=== PATIENT | male | born 1965 | race African-American/Black ===

== ENCOUNTER 2018-02-05 11:53 | Inpatient (IN) | payer MEDICAID, OTHER ==
[~2018-02-05] VITALS: Ht 177.8 cm; Wt 107.5 kg
[~2018-02-05 11:53] MED LIST: LISI10TA5 PO
--- NOTE | 2018-02-05 11:55 | NUR ---
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 102. RR IS EVEN AND UNLABORED WITH NAD NOTED. SKIN IS WARM AND DRY. PLACED ON THE MONITOR AND HOSPITAL GOWN.
--- NOTE | 2018-02-05 11:58 | NUR ---
SEPARATING MACHINE OPERATOR CALLED FOR STAT LAB DRAW
--- NOTE | 2018-02-05 11:59 | NUR ---
MD PERALES AT BEDSIDE
[2018-02-05] MEDS ORDERED: IV NS 0.9% 1,000 ML BAG IV ONE (12:00)
[2018-02-05] MEDS ORDERED: IV NS 0.9% 1,000 ML IV ONE ×2 (12:00→13:30)
[2018-02-05] MEDS ORDERED: ACETAMINOPHEN 650 MG/20.3 ML UDC ONE (12:21)
[2018-02-05] MEDS ORDERED: ACETAMINOPHEN 650 MG/20.3 ML UDC PO ONE (12:30)
--- NOTE | 2018-02-05 12:45 | NUR ---
MD PERALES AT BEDSIDE
[2018-02-05] MEDS ORDERED: LORAZEPAM INJ 2 MG/ML VIAL ONE (12:49)
[2018-02-05 12:55] LABS: BASOPHILS # (AUTO) 0.3 /CMM (0.0-0.2); BASOPHILS % (AUTO) 1.8 % (0.0-2.0); EOSINOPHILS % (AUTO) 0.3 % (0.0-6.0); HEMATOCRIT 42 % (39-51); HEMOGLOBIN 14.3 g/dL (13.5-17.5); LYMPHOCYTES # (AUTO) 0.8 /CMM (0.8-4.8); LYMPHOCYTES % (AUTO) 5.3 % (20.0-44.0); MEAN CORPUSCULAR HEMOGLOBIN 29 PG (26.0-33.0); MEAN CORPUSCULAR HGB CONC 34 g/dl (31.0-36.0); MEAN CORPUSCULAR VOLUME 84 fL (80-96); MONOCYTES # (AUTO) 0.8 /CMM (0.1-1.30); MONOCYTES % (AUTO) 5.3 % (2.0-12.0); NEUTROPHILS # (AUTO) 14.1 /CMM (1.8-8.9); NEUTROPHILS % (AUTO) 87.3 % (43.0-81.0); PLATELET COUNT (AUTO) 328 /CMM (150-450); RDW COEFFICIENT OF VARIATION 13.2 (11.5-15.0); RED BLOOD CELL COUNT(AUTO) 5.02 MIL/uL (4.5-6.0)
[2018-02-05] MEDS ORDERED: CEFTRIAXONE 1GM BAG (ER ONLY) 1 GM/50 ML PIGGYBACK IV ONE (13:00)
[2018-02-05] MEDS ORDERED: LORAZEPAM INJ 2 MG/ML VIAL IV ONE (13:00)
[2018-02-05] MEDS ORDERED: ASPI-1169 PO (13:04)
[2018-02-05] MEDS ORDERED: OXYC30TA2 PO (13:04)
[2018-02-05] MEDS ORDERED: CEFTRIAXONE 1GM BAG (ER ONLY) 50 ML IV ONE (13:05)
[2018-02-05 13:15] LABS: CALCIUM, SERUM 8.4 mg/dL (8.5-10.1); CARBON DIOXIDE 34 mmol/L (21-32); CHLORIDE 101 mmol/L (98-107); CREATININE 1.3 mg/dL (0.6-1.3); GLUCOSE 161 mg/dL (74-106); POTASSIUM 3.6 mmol/L (3.5-5.1); SODIUM SERUM 137 mmol/L (136-145); UREA NITROGEN, BLOOD 10 mg/dL (7-18)
[2018-02-05 13:16] LABS: INR 0.97 (0.85-1.15)
[2018-02-05 13:17] LABS: APPEARANCE,URINE Clear (CLEAR); BILIRUBIN,URINE Negative (NEGATIVE); BLOOD, URINE Negative Ery/uL (NEGATIVE); COLOR,URINE Yellow (YELLOW); KETONES,URINE Negative (NEGATIVE); LEUKOCYTE ESTERASE ,URINE Negative (NEGATIVE); NITRITE, URINE Negative (NEGATIVE); PH,URINE 8.5 (5.0-8.0); PROTEIN,URINE Negative (NEGATIVE); UGLUCOSE Negative (NEGATIVE); UROBILINOGEN,URINE 0.2 EU/dL (0.2)
[2018-02-05 13:19] LABS: ALANINE AMINOTRANSFERASE 28 U/L (12-78); ALBUMIN 3.4 g/dL (3.4-5.0); ALKALINE PHOSPHATASE 92 U/L (46-116); ASPARTATE AMINOTRANSFERASE 21 U/L (15-37); BILIRUBIN,DIRECT 0.1 mg/dL (0.0-0.2); BILIRUBIN,TOTAL 0.3 mg/dL (0.2-1.0); TOTAL PROTEIN, SERUM 6.8 g/dL (6.4-8.2)
[2018-02-05 13:20] LABS: TROPONIN I 0.019 ng/mL (0.00-0.056)
--- NOTE | 2018-02-05 13:24 | NUR ---
CALLED NURSING SUP. FOR TELE BED
--- NOTE | 2018-02-05 13:26 | NUR ---
CALLED PHARMACY FOR KAMALA
[2018-02-05] MEDS ORDERED: AZITHROMYCIN 500 MG in IV D5W 250 ML IV ONE (13:30)
--- NOTE | 2018-02-05 13:41 | NUR ---
TELE 112-2 FOR SEPSIS, DAMIR ROCHA ADMITTING
[2018-02-05] MEDS ORDERED: IV NS 0.9% 500 ML IV ONE (14:00)
--- NOTE | 2018-02-05 14:00 | NUR ---
HARP REGULATOR INITIAL NOTES: RECEIVED PT FROM ER NURSE VIA CHELLE. PT A&O X4 WITH SOME LETHARGY NOTED. BUT EASY TO AROUSE. PT DENIES ANY PAIN OR DISCOMFORT AT THIS TIME. ON O2 VIA NC AT 2LPM ORDERED, O2 SATURATION 98%. VS STABLE. SKIN ASSESSMENT DONE, INTACT. DAMIR ROCHA FLATWORK IRONER AWARE OF PT'S ADMISSION. ORDERS INPUTTED IN COMPUTER. BED IN LOW LOCKED POSITION, CALL LIGHT WITHIN REACH. PLAN OF CARE DISCUSSED WITH PT. PT STATED UNDERSTANDING. WILL CONTINUE TO MONITOR.
[2018-02-05] MEDS ORDERED: ONDANSETRON HCL/PF 4 MG/2 ML VIAL IVP PRN (14:30)
[2018-02-05] MEDS ORDERED: Z GUARD REMEDY 2 OZ OINT TP PRN (14:30)
[2018-02-05] MEDS ORDERED: ACETAMINOPHEN 325 MG TABLET PO PRN (14:30)
[2018-02-05] MEDS ORDERED: MAGNESIUM HYDROXIDE 30 ML UDC PO PRN (14:30)
[2018-02-05] MEDS: IV NS 0.9% 1,000 ML IV PRN ×2 (15:18→23:59)
[2018-02-05] MEDS: ENOXAPARIN SODIUM 40 MG/0.4 ML DISP.SYRIN SQ SCH (15:43)
[2018-02-05 16:00] VITALS: BP 104/58
[2018-02-05 18:19] VITALS: BP 125/66
--- NOTE | 2018-02-05 18:45 | NUR ---
CREDIT PRODUCT ANALYST END NOTES: PT REMAINS IN BED, SLEEPING AT THIS TIME BUT EASY TO AROUSE. FAMILY AWARE OF PT'S LOCATION AND ADMISSION TO HOSPITAL. PT SPOKE WITH FAMILY WELL. NO C.O PAIN OR DISCOMFORT AT THIS TIME. IV FLUIDS RUNNING ORDERED. O2 VIA NC AT 2LPM, NO SOB OR RESPIRATORY DISTRESS NOTED. BED IN LOW LOCKED POSITION, CALL LIGHT WITHIN REACH. WILL ENDORSE TO PM SHIFT FOR CONTINUITY OF CARE.
[2018-02-05 20:00] VITALS: BP 103/67
--- NOTE | 2018-02-05 20:46 | NUR ---
RN NOTES REFLEX TROPONIN RESULTED. NOTED TO BE TRENDING UP FROM 0.019 TO 0.032. PATIENT IS ASYMPTOMATIC, NO COMPLAINTS OF PAIN AND DISCOMFORT, NO PALPITATIONS. VSS. PATIENT REMAINS LETHARGIC BUT ORIENTED. DR. CHAUDHARY MADE AWARE OF THE TROPONIN VALUE, NNO. MARII HATCH, AWARE.
[2018-02-06] VITALS (7 sets, daily range): BP systolic 109–142; BP diastolic 57–87
--- NOTE | 2018-02-06 01:00 | NUR ---
RN NOTES patient more alert and oriented, complaining of SOB and sharp, midsternal pain with breathing, non radiating. also noted patient with blood tinged sputum. VSS. Patient admitted for Sepsis, CAP. Updated patient with current condition and DX. per patient, he presented with PNA last 1992 with same symptomatology and stated that he was being medicated with Morphine for his pain. Patient medicated with [place] at 0000, with help for the patient, patient asleep, easily arousable, still with complaints of pain with breathing. Dr. Barker made aware of the patient's complaints, new order for Morphine IVP PRN obtained. noted and carried out. Patient at 0100 is observed to be sound asleep. kept comfortable. monitored closely.
[2018-02-06] MEDS: MORPHINE SULFATE INJ 2 MG/ML DISP.SYRIN IV PRN ×4 (03:44→21:04)
--- NOTE | 2018-02-06 06:47 | NUR ---
RN NOTES PATIENT SLEEPING COMFORTABLY. AROUSABLE WITH VERBAL AND TACTILE STIMULI, NO FURTHER COMPLAINTS OF PAIN AND DISCOMFORT. MORPHINE GIVEN AT 0400, EFFECTIVE FOR THE PATIENT. KEPT ON 2LPM OF O2 VIA NC. RESPIRATION EVEN AND UNLABORED WITH NO DISTRESS. IVF ORDERED. NEEDS ANTICIPATED AND MET. CALL LIGHT IN REACH. WILL ENDORSE ACCORDINGLY.
[2018-02-06 06:52] LABS: BASOPHILS % (AUTO) 0.2 % (0.0-2.0); EOSINOPHILS % (AUTO) 1.5 % (0.0-6.0); HEMATOCRIT 39 % (39-51); HEMOGLOBIN 13.4 g/dL (13.5-17.5); LYMPHOCYTES # (AUTO) 1.7 /CMM (0.8-4.8); LYMPHOCYTES % (AUTO) 11.8 % (20.0-44.0); MEAN CORPUSCULAR HEMOGLOBIN 29 PG (26.0-33.0); MEAN CORPUSCULAR HGB CONC 34 g/dl (31.0-36.0); MEAN CORPUSCULAR VOLUME 84 fL (80-96); MONOCYTES # (AUTO) 1.1 /CMM (0.1-1.30); MONOCYTES % (AUTO) 7.6 % (2.0-12.0); NEUTROPHILS # (AUTO) 11.5 /CMM (1.8-8.9); NEUTROPHILS % (AUTO) 78.9 % (43.0-81.0); PLATELET COUNT (AUTO) 293 /CMM (150-450); RDW COEFFICIENT OF VARIATION 13.4 (11.5-15.0); RED BLOOD CELL COUNT(AUTO) 4.64 MIL/uL (4.5-6.0); WHITE BLOOD COUNT (AUTO) 14.5 K/uL (4.3-11.0)
[2018-02-06 07:17] LABS: CALCIUM, SERUM 8.2 mg/dL (8.5-10.1); MAGNESIUM 1.9 mg/dL (1.8-2.4); PHOSPHORUS 2.3 mg/dL (2.5-4.9); POTASSIUM 3.6 mmol/L (3.5-5.1)
[2018-02-06 07:28] LABS: THYROID STIMULATING HORMONE 0.247 uIU/mL (0.358-3.74)
--- NOTE | 2018-02-06 07:45 | NUR ---
RN Note: Pt received A&Ox4, breathing even and unlabored, anxious, c/o chest pain exacerbated by coughing, 02/02. Pt requesting morphine for comfort. Educated on POC. Verbalized understanding. IVF infusing well into R AC. SR on monitor.
[2018-02-06] MEDS: ASPIRIN 81 MG TAB.CHEW PO SCH (08:08)
[2018-02-06] MEDS: LISINOPRIL (10MG) 10 MG TABLET PO SCH (08:08)
[2018-02-06] MEDS: ENOXAPARIN SODIUM 40 MG/0.4 ML DISP.SYRIN SQ SCH (08:09)
[2018-02-06] MEDS ORDERED: K PHOS NEUTRAL 250 MG TABLET PO ONE (11:00)
--- NOTE | 2018-02-06 12:00 | NUR ---
RN Note: Omar Lopez at bedside speaking with pt. Updated on pt status.
[2018-02-06] MEDS: HYDROCODONE/APAP 5/325MG 1 EACH TABLET PO PRN ×2 (13:05)
[2018-02-06] MEDS: CEFTRIAXONE 1 G in IV NS 0.9% 50 ML IV SCH (13:06)
--- NOTE | 2018-02-06 13:30 | NUR ---
RN Note: Pt ambulated with PT, tolerated well.
--- NOTE | 2018-02-06 13:44 | NUR ---
Patient is alert and pleasant,lives locally with family. He is ambulatory and independent with adl's. Has no DME or homehealth provided. Family involved and supportive. Family will provide ride when discharge. Addendum: 02/06/18 at 1344 by MARKOS TAN RN Amended: Links added.
[2018-02-06] MEDS: AZITHROMYCIN 500 MG in IV D5W 250 ML IV SCH (14:11)
[2018-02-06] MEDS: IV NS 0.9% 1,000 ML IV PRN (17:35)
--- NOTE | 2018-02-06 18:59 | NUR ---
RN Note: Pt resting in bed comfortably, no s/s pain or distress. Tolerated dinner well. IVF infusing. Care endorsed to PM RN for EDUARDO.
--- NOTE | 2018-02-06 19:30 | NUR ---
TELE/ RN NOTES: RECEIVED PT. IN BED W/ HOB ELEVATED. A/O X 4. ON TELE MONITOR SR @ 86. DENIES ANY C/O CHEST PAIN OR SOB AT PRESENT. CONTINENT OF B/B. USES URINAL OR BRP. HAS RAC G 20 PATENT AND INTACT W/ NO S/S OF INFECTION/INFILTRATION. W/ NS @ 100CC/HR. BEDS LOCKED AND IN LOW POSITION. CALL LIGHT W/ REACH. WILL CONTINUE TO MONITOR.
[2018-02-07] VITALS: BP_SYST 129; BP_SYST 146; BP_DIAS 57; BP_DIAS 89
[2018-02-07 04:00] VITALS: BP 144/89
[2018-02-07] MEDS: MORPHINE SULFATE INJ 2 MG/ML DISP.SYRIN IV PRN ×4 (04:19→23:06)
--- NOTE | 2018-02-07 07:21 | NUR ---
TELE/RN NOTES: NO ACUTE CHANGES NOTED DURING THIS SHIFT. REPORT GIVEN TO NEXT SHIFT NURSE FOR EDUARDO.
[2018-02-07 08:00] VITALS: BP 133/86
--- NOTE | 2018-02-07 08:00 | NUR ---
MS1/RN AM SHIFT INITIAL NOTES RECEIVED PT ASLEEP IN BED, AROUSEABLE, A/O X 4, NO ACUTE CHANGE OF CONDITION NOTED, PT DENIES ANY SYMPTOMS AT THIS TIME. ON ROOM AIR SATURATING @ 97%, LUNG SOUNDS CLEAR. WITH ON GOING IV INFUSION OF NS @ 100CC/HR, IV SITE PATENT WITH NO S/S OF INFECTION. PT IS COMFORTABLE, SCHEDULED AM MEDS TO BE GIVEN. CL WITHIN REACHED AND SAFETY MAINTAINED. ON GOING MONITORING.
[2018-02-07] MEDS: ENOXAPARIN SODIUM 40 MG/0.4 ML DISP.SYRIN SQ SCH (08:20)
[2018-02-07] MEDS: ASPIRIN 81 MG TAB.CHEW PO SCH (08:20)
[2018-02-07] MEDS: LISINOPRIL (10MG) 10 MG TABLET PO SCH (08:22)
[2018-02-07] MEDS: IV NS 0.9% 1,000 ML IV PRN (11:20)
[2018-02-07 11:52] LABS: HEMOGLOBIN 15.2 g/dL (13.5-17.5); WHITE BLOOD COUNT (AUTO) 6.8 K/uL (4.3-11.0)
[2018-02-07 11:53] LABS: BASOPHILS % (AUTO) 0.4 % (0.0-2.0); EOSINOPHILS % (AUTO) 4.4 % (0.0-6.0); HEMATOCRIT 46 % (39-51); LYMPHOCYTES % (AUTO) 30.5 % (20.0-44.0); MEAN CORPUSCULAR HEMOGLOBIN 28 PG (26.0-33.0); MEAN CORPUSCULAR HGB CONC 33 g/dl (31.0-36.0); MEAN CORPUSCULAR VOLUME 85 fL (80-96); MONOCYTES % (AUTO) 10.7 % (2.0-12.0); PLATELET COUNT (AUTO) 339 /CMM (150-450); RDW COEFFICIENT OF VARIATION 14.3 (11.5-15.0)
[2018-02-07 11:59] LABS: CALCIUM, SERUM 9.1 mg/dL (8.5-10.1); POTASSIUM 3.5 mmol/L (3.5-5.1)
[2018-02-07] MEDS: AZITHROMYCIN 500 MG in IV D5W 250 ML IV SCH (14:38)
[2018-02-07] MEDS: CEFTRIAXONE 1 G in IV NS 0.9% 50 ML IV SCH (14:38)
[2018-02-07 16:00] VITALS: BP 131/71
--- NOTE | 2018-02-07 19:15 | NUR ---
RN M/S NOTE PATIENT IS AOX4, SPEECH CLEAR, ABLE TO MAKE NEEDS KNOWN, DENIES ANY PAIN CURRENTLY, RESTING COMFORTABLY IN BED, ON ROOM AIR, NO CARDIAC OR RESPIRATORY DISTRESS, RAC #20G PATENT FLUSHING WELL, SITE CDI, BRP, SKIN KEPT CLEAN AND DRY, HAS NO VOICED CONCERNS. SAFETY MAINTAINED AT ALL TIMES, BED IN LOW LOCKED POSITION, CALL LIGHT WITHIN REACH, WILL CONTINUE TO MONITOR FOR ANY CHANGES IN CONDITION.
[2018-02-07 20:00] VITALS: BP 135/88
--- NOTE | 2018-02-07 20:00 | NUR ---
MS1/RN AM SHIFT END NOTES ALL NEEDS MET. NO ACUTE CHANGE OF CONDITION NOTED DURING THE SHIFT. PT ENDORSED TO PM NURSE TO CONTINUE CARE. IV SITE INTACT AND PATENT, NO S/S OF INFECTION. CL WITHIN REACHED AND SAFETY MAINTAINED.
[2018-02-07] MEDS: HYDROCODONE/APAP 5/325MG 1 EACH TABLET PO PRN (23:47)
[2018-02-07] MEDS: MAG HYDROX/AL HYDROX/SIMETH 30 ML UDC PO PRN (23:52)
[2018-02-08 04:00] VITALS: BP 113/77
--- NOTE | 2018-02-08 07:20 | NUR ---
MS RN OPENING NOTE PATIENT IS AOX4, SPEECH CLEAR,STAMMERING NOTED SOME TIMES. ABLE TO MAKE NEEDS KNOWN, C/O PAIN PAIN CURRENTLY, TOLD WILL BE BACK WITH PAIN MEDICATION.ON ROOM AIR, NO CARDIAC OR RESPIRATORY DISTRESS, RAC #20G PATIENT C/O PAIN, SITE CDI, BRP, SAFETY MAINTAINED . BED IN LOW LOCKED POSITION, CALL LIGHT WITHIN REACH, WILL CONTINUE TO MONITOR FOR ANY CHANGES IN CONDITION.
[2018-02-08] MEDS: MORPHINE SULFATE INJ 2 MG/ML DISP.SYRIN IV PRN ×3 (07:39→19:37)
[2018-02-08 08:00] VITALS: BP 130/97
--- NOTE | 2018-02-08 08:00 | NUR ---
RN NOTES INSERTED IV LINE ON RFA #20.GOOD BLOOD RETURN NOTICED.
[2018-02-08 08:22] LABS: POTASSIUM 4.3 mmol/L (3.5-5.1)
[2018-02-08 08:28] LABS: BASOPHILS % (AUTO) 0.5 % (0.0-2.0); EOSINOPHILS % (AUTO) 5.3 % (0.0-6.0); HEMATOCRIT 45 % (39-51); HEMOGLOBIN 14.9 g/dL (13.5-17.5); LYMPHOCYTES # (AUTO) 1.6 /CMM (0.8-4.8); LYMPHOCYTES % (AUTO) 29.6 % (20.0-44.0); MEAN CORPUSCULAR HEMOGLOBIN 28 PG (26.0-33.0); MEAN CORPUSCULAR HGB CONC 33 g/dl (31.0-36.0); MEAN CORPUSCULAR VOLUME 84 fL (80-96); MONOCYTES # (AUTO) 0.5 /CMM (0.1-1.30); MONOCYTES % (AUTO) 9.9 % (2.0-12.0); NEUTROPHILS # (AUTO) 2.9 /CMM (1.8-8.9); NEUTROPHILS % (AUTO) 54.7 % (43.0-81.0); PLATELET COUNT (AUTO) 336 /CMM (150-450); RDW COEFFICIENT OF VARIATION 13.3 (11.5-15.0); RED BLOOD CELL COUNT(AUTO) 5.31 MIL/uL (4.5-6.0); WHITE BLOOD COUNT (AUTO) 5.3 K/uL (4.3-11.0)
[2018-02-08] MEDS: IV NS 0.9% 1,000 ML IV PRN (09:00)
[2018-02-08] MEDS: ASPIRIN 81 MG TAB.CHEW PO SCH (09:01)
[2018-02-08] MEDS: LISINOPRIL (10MG) 10 MG TABLET PO SCH (09:02)
[2018-02-08] MEDS: ENOXAPARIN SODIUM 40 MG/0.4 ML DISP.SYRIN SQ SCH (09:04)
[2018-02-08] MEDS ORDERED: AZIT250T PO (12:27)
[2018-02-08] MEDS ORDERED: AMOX500T2 PO (12:27)
--- NOTE | 2018-02-08 13:00 | NUR ---
RN NOTES SEEN BY CHELSEA SALES AND GOT DISCHARGE ORDER.PATIENT WANT TO STAY ONE MORE DAY. EXPLAINED HIM THAT HE CAN CONTINUE ANTIBIOTICS AT HOME AND FOLLOW UP WITH HIS PRIMARY PHYSICIAN.READY TO BE DISCHARGED.MEDICALLY STABLE.
[2018-02-08] MEDS: CEFTRIAXONE 1 G in IV NS 0.9% 50 ML IV SCH (13:28)
--- NOTE | 2018-02-08 13:30 | NUR ---
RN NOTES PATIENT'S DAD CALLED MADE AWARE ABOUT THE DISCHARGE,HE TOLD THAT HE WILL BE HERE AROUND 8PM FOR ADJUNCT PROFESSOR OF LAW THE PATIENT.PATIENT MADE AWARE.
[2018-02-08] MEDS: AZITHROMYCIN 500 MG in IV D5W 250 ML IV SCH (14:26)
[2018-02-08 16:00] VITALS: BP 122/80
--- NOTE | 2018-02-08 19:10 | NUR ---
RN M/S NOTE PATIENT IS AOX4, SPEECH CLEAR, RESTING COMFORTABLY IN BED, PLAN TO D/C HOME, ON ROOM AIR, NO CARDIAC OR RESPIRATORY DISTRESS, RWRIST #22G PATENT FLUSHING WELL, SITE CDI, BRP, SKIN KEPT CLEAN AND DRY, HAS NO VOICED CONCERNS. SAFETY MAINTAINED AT ALL TIMES, BED IN LOW LOCKED POSITION, CALL LIGHT WITHIN REACH, WILL CONTINUE TO MONITOR FOR ANY CHANGES IN CONDITION.
--- NOTE | 2018-02-08 19:25 | NUR ---
MS RN SHIFT END NOTE PATIENT IS AOX4, SPEECH CLEAR,STAMMERING NOTED NOTIFIED TO WHITE SUGAR SYRUP OPERATOR SONGTE. ABLE TO MAKE NEEDS KNOWN, .ON ROOM AIR, NO CARDIAC OR RESPIRATORY DISTRESS, RW #20G SITE CDI, BRP, SAFETY MAINTAINED . BED IN LOW LOCKED POSITION, CALL LIGHT WITHIN REACH,.DISCHARGE INSTRUCTIONS GIVEN AND EXPLAINED TO THE PATIENT.PRESCRIPTIONS SHOWED TO THE PATIENT AND HE SAID HE WILL BANDER FROM THE PHARMACY.HE TOLD HE DONT HAVE PCP NOW.WAITING FOR EMERGENCY MEDICAL APPROVAL.TOLD TO CALL 911 OR GO TO NEAREST EMERGENCY ROOM IN CASE OF EMERGENCY.CHARGE NURSE AWARE.AND FOLLOW UP WITH PCP ONCE AVAILABLE.REPORT GIVEN TO PM NURSE FOR FOLLOW UP FOR DISCHARGE PAPER WORK.PATIENT SIGNED DISCHARGE INSTRUCTIONS AND BELONGING LIST.
[2018-02-08] MEDS: MAG HYDROX/AL HYDROX/SIMETH 30 ML UDC PO PRN (19:47)
--- NOTE | 2018-02-08 20:10 | NUR ---
RN M/S NOTE PATIENT D/C HOME PICKED UP BY SON, PT IS AMBULATORY NO S/SX OF CARDIAC OR RESPIRATORY DISTRESS. REVIEWED DISCHARGE INSTRUCTIONS WITH PT, VERBALIZED UNDERSTANDING. NO VOICED CONCERNS.
== END 2018-02-08 20:30 | disposition home or self-care (01) | DRG 720 ==
LOC: ER 11:55 → TELE1 13:45 → MEDSG1 02-07 08:06
PROVIDERS: ADMIT Nurse Practitioner Acute Care; ATTEND Nurse Practitioner Acute Care
DX: A41.9 Sepsis, unspecified organism (principal); E87.2 Acidosis; J18.9 Pneumonia, unspecified organism; I10 Essential (primary) hypertension; R65.20 Severe sepsis without septic shock; E11.9 Type 2 diabetes mellitus without complications; E66.9 Obesity, unspecified; Z68.34 Body mass index [BMI] 34.0-34.9, adult
CPT/HCPCS: 36415; 71045-TC; 80048-TC; 80061-TC; 80076-TC; 81000-TC; 83605-TC; 83735-TC; 84100-TC; 84439-TC; 84443-TC; 84484-TC; 85025-TC; 85730-TC; 86403-TC; 87040-TC; 87070-TC; 87081-TC; 87086-TC; A4216; A4606; J0456; J0696; J1650; J2060; J2270; J7030; J7060; Z7610

== ENCOUNTER 2018-03-23 04:43 | Emergency (ER) | payer MEDICAID ==
[~2018-03-23] VITALS: Ht 177.8 cm; Wt 106.6 kg
[~2018-03-23 04:43] MED LIST changes: +AMOX500T2 PO; +ASPI-1169 PO; +AZIT250T PO; +OXYC30TA2 PO
--- NOTE | 2018-03-23 05:03 | NUR ---
PT BIB SELF C/O SHARP STABBING CP S/P COCAINE USE 1 HR ROLLER MILL OPERATOR. NONRADIATING. RESP EVEN UNLABORED. SKIN WARM DRY. AMBULATORY STEADY GAIT. NAD NOTED. IN ER BED 09 ON MONITOR.
[2018-03-23] MEDS ORDERED: ASPIRIN 81 MG TAB.CHEW ONE (05:20)
[2018-03-23] MEDS ORDERED: LORAZEPAM INJ 2 MG/ML VIAL ONE (05:21)
[2018-03-23] MEDS ORDERED: ASPIRIN 81 MG TAB.CHEW PO ONE (05:30)
[2018-03-23] MEDS ORDERED: LORAZEPAM INJ 2 MG/ML VIAL IV ONE (05:30)
[2018-03-23 05:42] LABS: HEMATOCRIT 44 % (39-51); HEMOGLOBIN 14.3 g/dL (13.5-17.5); MEAN CORPUSCULAR HEMOGLOBIN 28 PG (26.0-33.0); MEAN CORPUSCULAR HGB CONC 33 g/dl (31.0-36.0); MEAN CORPUSCULAR VOLUME 86 fL (80-96); RDW COEFFICIENT OF VARIATION 15.2 (11.5-15.0); WHITE BLOOD COUNT (AUTO) 6.7 K/uL (4.3-11.0)
[2018-03-23 05:43] LABS: BASOPHILS % (AUTO) 0.4 % (0.0-2.0); EOSINOPHILS % (AUTO) 1.1 % (0.0-6.0); LYMPHOCYTES % (AUTO) 29.5 % (20.0-44.0); MONOCYTES # (AUTO) 0.7 /CMM (0.1-1.30); MONOCYTES % (AUTO) 10.4 % (2.0-12.0); NEUTROPHILS # (AUTO) 3.9 /CMM (1.8-8.9); NEUTROPHILS % (AUTO) 58.6 % (43.0-81.0); PLATELET COUNT (AUTO) 409 /CMM (150-450)
[2018-03-23 05:55] LABS: CARBON DIOXIDE 32 mmol/L (21-32); CHLORIDE 101 mmol/L (98-107); GLUCOSE 119 mg/dL (74-106); POTASSIUM 2.9 mmol/L (3.5-5.1); SODIUM SERUM 141 mmol/L (136-145); UREA NITROGEN, BLOOD 9 mg/dL (7-18)
[2018-03-23 05:58] LABS: INR 1.04 (0.87-1.13)
[2018-03-23] MEDS ORDERED: SUCRALFATE 1 G/10 ML UDC PO ONE (06:00)
[2018-03-23] MEDS ORDERED: FAMOTIDINE/PF INJ 20 MG/2 ML VIAL IV ONE ×2 (06:00→06:09)
[2018-03-23 06:02] LABS: TROPONIN I < 0.017 ng/mL (0.00-0.056)
[2018-03-23 06:07] LABS: B-TYPE NATRIURETIC PEPTIDE 22 PG/ML (0-125)
[2018-03-23] MEDS ORDERED: SUCRALFATE 1 G/10 ML UDC ONE (06:09)
--- NOTE | 2018-03-23 06:24 | NUR ---
RESTING QUIETLY, NAD NOTED, VSS. PENDING REPEAT TROPONIN AT 0830.
[2018-03-23] MEDS ORDERED: POTASSIUM CHLORIDE 10 MEQ/50 ML PREMIXED IVPB FOR PERIPHERAL LINE IV ONE (06:30)
[2018-03-23] MEDS ORDERED: POTASSIUM CL. PREMIX PERIPHER. 100 ML ONE (06:41)
[2018-03-23] MEDS ORDERED: IBUPROFEN 600 MG TABLET PO ONE (06:54)
--- NOTE | 2018-03-23 06:57 | NUR ---
PT REQUESTING PAIN MEDICATION; ORDERED MOTRIN 600MG. ADMINISTERED. Addendum: 03/23/18 at 0658 by HFOX AMENDMENT; 800MG ORDERED AND ADMINISTERED
[2018-03-23] MEDS ORDERED: IBUPROFEN 200 MG TABLET ONE (06:59)
[2018-03-23] MEDS ORDERED: IBUPROFEN 400 MG TABLET PO ONE (07:00)
--- NOTE | 2018-03-23 07:28 | NUR ---
report given to melissa arroyo RN for EDUARDO
--- NOTE | 2018-03-23 09:20 | NUR ---
IV removed. Catheter intact and site benign. Pressure and 4x4 applied to site. No bleeding noted.
[2018-03-23 10:00] VITALS: BP 145/82
--- NOTE | 2018-03-23 10:01 | NUR ---
Patient discharged to home in stable condition. Written and verbal after care instructions given. Patient verbalizes understanding of instruction.
== END 2018-03-23 10:15 | disposition home or self-care (01) ==
LOC: ER 04:44
DX: R07.89 Other chest pain (principal); F10.10 Alcohol abuse, uncomplicated; E87.6 Hypokalemia; R10.13 Epigastric pain; I10 Essential (primary) hypertension; F17.200 Nicotine dependence, unspecified, uncomplicated; Z79.82 Long term (current) use of aspirin; Z79.899 Other long term (current) drug therapy; Z87.01 Personal history of pneumonia (recurrent); Y90.9 Presence of alcohol in blood, level not specified
CPT/HCPCS: 36415; 71045; 80048; 83880; 84484 ×2; 85025; 85730; 93005; 96365; 96366; 96375; 99285; A4606; J2060; J3480; J3490; Z7610

== ENCOUNTER 2021-02-20 02:01 | Emergency (ER) | payer MEDICAID, OTHER ==
[~2021-02-20] VITALS: Ht 177.8 cm; Wt 104.3 kg
[~2021-02-20 02:01] MED LIST changes: +LISI10TA29 PO; -LISI10TA5 PO
--- NOTE | 2021-02-20 02:31 | NUR ---
CALLED FOR TRIAGE, NO ANSWER
[2021-02-20 03:20] VITALS: BP 135/83
--- NOTE | 2021-02-20 03:40 | NUR ---
PT WALKED OUT OF THE EMERGENCY ROOM; PT BECAME VERY AGITATED WHEN ER MD DOING ASSESSMENT. PT REFUSED TO ANSWER QUESTIONS AND BECAME VERY RUDE TO STAFF.
--- NOTE | 2021-02-20 03:41 | NUR ---
HOUSE SUP MADE AWARE OF SITUATION. CALLED SECURITY AT THIS TIME TO ESCORT PATIENT OUT OF THE FACILITY.
[2021-02-20] MEDS ORDERED: CT SWABBABLE VALVE TRANS SET 1 EA INFUS.SET MC ONE (10:42)
[2021-02-20] MEDS ORDERED: IV NS 0.9% 250 ML IV ONE (10:42)
[2021-02-20] MEDS ORDERED: IOHEXOL-300 100 ML VIAL IV ONE (10:42)
[2021-02-20] MEDS ORDERED: AMLO10TA4 PO (12:50)
[2021-02-20] MEDS ORDERED: GABA600T12 PO (13:23)
[2021-02-20] MEDS ORDERED: CYCL5TAB PO (13:23)
== END 2021-02-20 03:50 | disposition left against medical advice (07) ==
LOC: ER 02:06
DX: R10.9 Unspecified abdominal pain (principal); R45.1 Restlessness and agitation; I10 Essential (primary) hypertension; F17.200 Nicotine dependence, unspecified, uncomplicated; Z98.890 Other specified postprocedural states; Z79.82 Long term (current) use of aspirin; Z79.899 Other long term (current) drug therapy
CPT/HCPCS: 99281; J7050; Q9967

== ENCOUNTER 2021-02-20 09:24 | Inpatient (IN) | payer OTHER ==
[~2021-02-20] VITALS: Ht 177.8 cm; Wt 104.3 kg
--- NOTE | 2021-02-20 09:45 | NUR ---
UMBILICAL AREA PAIN WORST X 2 DAYS. +HERNIA NOTED. PATIENT A/OX3, BREATHING EVEN AND UNLABORED, NO SOB NOTED. KEPT COMFORTABLE.
[2021-02-20] MEDS ORDERED: ONDANSETRON HCL/PF 4 MG/2 ML VIAL ONE (09:58)
[2021-02-20] MEDS ORDERED: MORPHINE SULFATE INJ 4 MG/ML DISP.SYRIN ONE ×2 (09:58→13:32)
[2021-02-20] MEDS ORDERED: ONDANSETRON HCL/PF 4 MG/2 ML VIAL IVP ONE (10:00)
[2021-02-20] MEDS ORDERED: MORPHINE SULFATE INJ 2 MG/ML DISP.SYRIN IV ONE ×2 (10:00→12:30)
--- NOTE | 2021-02-20 10:00 | NUR ---
PATIENT UNABLE TO PROVIDE URINE AT THIS TIME.
--- NOTE | 2021-02-20 10:10 | NUR ---
IV LINE ESTABLISHED, BLOOD DRAWN AND SENT TO LAB.
[2021-02-20 10:14] LABS: BASOPHILS # (AUTO) 0.3 K/uL (0.0-0.2); BASOPHILS % (AUTO) 3.4 % (0.0-2.0); EOSINOPHILS % (AUTO) 1.8 % (0.0-6.0); HEMATOCRIT 40 % (39-51); HEMOGLOBIN 13.5 g/dL (13.5-17.5); LYMPHOCYTES % (AUTO) 13.4 % (20.0-44.0); MEAN CORPUSCULAR HGB CONC 34 g/dl (31.0-36.0); MEAN CORPUSCULAR VOLUME 86 fL (80-96); MONOCYTES # (AUTO) 0.5 K/uL (0.1-1.30); NEUTROPHILS # (AUTO) 5.6 K/uL (1.8-8.9); NEUTROPHILS % (AUTO) 74.4 % (43.0-81.0); PLATELET COUNT (AUTO) 390 K/uL (150-450); RED BLOOD CELL COUNT(AUTO) 4.66 MIL/uL (4.5-6.0); WHITE BLOOD COUNT (AUTO) 7.5 K/uL (4.3-11.0)
[2021-02-20 10:21] LABS: CALCIUM, SERUM 8.6 mg/dL (8.5-10.1); POTASSIUM 3.8 mmol/L (3.5-5.1)
[2021-02-20 10:27] LABS: ALBUMIN 3.5 g/dL (3.4-5.0); BILIRUBIN,DIRECT 0.1 mg/dL (0.0-0.2); BILIRUBIN,TOTAL 0.4 mg/dL (0.2-1.0); TOTAL PROTEIN, SERUM 6.6 g/dL (6.4-8.2)
[2021-02-20 11:54] LABS: BILIRUBIN,URINE Negative (NEGATIVE); COLOR,URINE YELLOW (YELLOW); LEUKOCYTE ESTERASE ,URINE Negative (NEGATIVE); NITRITE, URINE Negative (NEGATIVE); PROTEIN,URINE Negative (NEGATIVE); UGLUCOSE Negative (NEGATIVE); UROBILINOGEN,URINE 0.2 EU/dL (0.2)
--- NOTE | 2021-02-20 12:05 | NUR ---
CALLED [facility] FOR SURGERY CONSULT LEFT MSG.
--- NOTE | 2021-02-20 12:46 | NUR ---
MOVE SHEET SUBMITTED.
[2021-02-20] MEDS ORDERED: AMLO10TA4 PO (12:50)
[2021-02-20] MEDS ORDERED: GABA600T12 PO (13:23)
[2021-02-20] MEDS ORDERED: CYCL5TAB PO (13:23)
--- NOTE | 2021-02-20 14:22 | NUR ---
PT. STATES THAT HE IS NOT VACCINATED.
[2021-02-20] MEDS ORDERED: ONDANSETRON HCL/PF 4 MG/2 ML VIAL IVP PRN (14:30)
[2021-02-20] MEDS ORDERED: Z GUARD REMEDY 2 OZ OINT TP PRN (14:30)
[2021-02-20] MEDS ORDERED: ZOLPIDEM TARTRATE 5 MG TABLET PO PRN (14:30)
[2021-02-20] MEDS ORDERED: ACETAMINOPHEN 325 MG TABLET PO PRN (14:30)
[2021-02-20] MEDS ORDERED: MAG HYDROX/AL HYDROX/SIMETH 30 ML UDC PO PRN (14:30)
[2021-02-20] MEDS ORDERED: HYDROMORPHONE 1 MG/1 ML DISP.SYRIN ONE (16:46)
[2021-02-20] MEDS: HYDROMORPHONE INJ 2 MG/ML DISP.SYRIN IV PRN ×2 (16:50→22:09)
--- NOTE | 2021-02-20 16:51 | NUR ---
PATIENT C/O ABDOMINAL PAIN, DILAUDID PRN GIVEN.
--- NOTE | 2021-02-20 18:40 | NUR ---
PATIENT RESTING, NO DISTRESS NOTED.
--- NOTE | 2021-02-20 21:08 | NUR ---
REPORT CALLED TO M/S MARCO A VARGASRAMESH. WILL TRANSPORT PT TO M/S FLOOR
[2021-02-20 21:20] VITALS: BP 102/66
--- NOTE | 2021-02-20 21:20 | NUR ---
MS GARBAGE COLLECTOR NOTES RECEIVED ADMIT FROM ER THIS 55 YO MALE,ALERT,ORIENTED X4, WITH CHIEF COMPLAINTS OF ABDOMINAL PAIN X 2 WEEKS,NOTED PROTRUDING ABDOMEN,WITH KNOWN HISTORY OF ABDOMINAL HERNIA,WITH REPAIR 13 YEARS AGO.SALINE LOCK RIGHT AC INTACT AND PATENT.NO SKIN ISSUES.AMBULATE WITH STEADY GAIT.CALL LIGHT IN REACH,NEEDS ANTICIPATED.
[2021-02-20 21:30] VITALS: BP 102/66
[2021-02-20] MEDS: IV NS 0.9% 1,000 ML IV PRN (22:01)
--- NOTE | 2021-02-20 22:01 | NUR ---
MS RN NOTES STARTED ON IVF NS AT 75ML/HR RATE,INFUSING VIA IV PUMP ON RIGHT AC SALINE LOCK.
[2021-02-20] MEDS: ENOXAPARIN SODIUM 40 MG/0.4 ML DISP.SYRIN SQ SCH (22:04)
--- NOTE | 2021-02-20 22:04 | NUR ---
MS RN NOTES STARTED ON LOVENOX 40MG SQ ORDERED FOR DVT PROPHYLAXIS
--- NOTE | 2021-02-20 22:09 | NUR ---
MS RN NOTES PAIN MANAGEMENT C/O ABDOMINAL PAIN 9/10 ON PAIN SCALE,MEDICATED WITH DILAUDID 1MG IV ORDERED FOR SEVERE PAIN
[2021-02-21] MEDS: HYDROMORPHONE INJ 2 MG/ML DISP.SYRIN IV PRN ×6 (02:03→23:04)
--- NOTE | 2021-02-21 02:03 | NUR ---
MS RN NOTES PAIN MANAGEMENT C/O ABDOMINAL PAIN 10/10 ON PAIN SCALE,CANT WAIT ANOTHER MINUTES,MEDICATED WITH DILAUDID 1MG IV ORDERED.
--- NOTE | 2021-02-21 03:00 | NUR ---
MS RN NOTES SOUND ASLEEP,KEPT WARM AND COMFORTABLE.
--- NOTE | 2021-02-21 06:08 | NUR ---
MS RN NOTES ON BED SLEEPING,BREATHING REGULAR,NOT IN ANY FORM OF DISTRESS.STILL WITH ON AND OFF ABDOMINAL PAIN,MANAGE WITH DILAUDID 1MG IV ORDERED.KEPT NPO ORDERED.CALL LIGHT IN REACH,NEEDS ATTENDED.WILL ENDORSE TO DAY NURSE FOR EDUARDO.
[2021-02-21 06:52] LABS: BASOPHILS % (AUTO) 0.4 % (0.0-2.0); EOSINOPHILS % (AUTO) 2.9 % (0.0-6.0); HEMATOCRIT 42 % (39-51); HEMOGLOBIN 13.8 g/dL (13.5-17.5); LYMPHOCYTES % (AUTO) 35.8 % (20.0-44.0); MEAN CORPUSCULAR HGB CONC 33 g/dl (31.0-36.0); MEAN CORPUSCULAR VOLUME 87 fL (80-96); MONOCYTES # (AUTO) 0.4 K/uL (0.1-1.30); MONOCYTES % (AUTO) 7.2 % (2.0-12.0); NEUTROPHILS % (AUTO) 53.7 % (43.0-81.0); PLATELET COUNT (AUTO) 355 K/uL (150-450); RED BLOOD CELL COUNT(AUTO) 4.79 MIL/uL (4.5-6.0); WHITE BLOOD COUNT (AUTO) 5.6 K/uL (4.3-11.0)
[2021-02-21 07:09] LABS: CALCIUM, SERUM 8.2 mg/dL (8.5-10.1); CREATININE 0.9 mg/dL (0.6-1.3); MAGNESIUM 1.9 mg/dL (1.8-2.4); PHOSPHORUS 3.4 mg/dL (2.5-4.9); POTASSIUM 3.8 mmol/L (3.5-5.1)
[2021-02-21 07:20] LABS: THYROID STIMULATING HORMONE 1.112 uIU/mL (0.358-3.74)
[2021-02-21 08:00] VITALS: BP 126/78
--- NOTE | 2021-02-21 08:10 | NUR ---
RN OPENING NOTES RECEIVED PATIENT ASLEEP IN BED, EASY TO AROUSE. ALERT AND ORIENTED X 4. NO SIGNS OR SYMPTOMS OF DISTRESS NOTED. NO COMPLAINTS OF PAIN AT THIS TIME. PATIENT IS ABLE TO MAKE NEEDS KNOWN. IV ACCESS RAC#18 PATENT AND INTACT. SAFETY MEASURES IN PLACE WITH BED AT LOWEST POSITION AND SIDE RAILS UP X 2. CALL LIGHT IS WITHIN REACH. WILL CONTINUE TO MONITOR THROUGHOUT SHIFT.
[2021-02-21] MEDS: PANTOPRAZOLE 40 MG VIAL IV SCH (09:03)
[2021-02-21 16:00] VITALS: BP 134/78
[2021-02-21] MEDS ORDERED: ANESTHESIA TRAY IN PYXIS 1 EA TRAY MC ONE (18:47)
[2021-02-21] MEDS: IV NS 0.9% 1,000 ML IV PRN (18:56)
--- NOTE | 2021-02-21 19:39 | NUR ---
MS RN Opening Notes Patient was seen awake resting in bed. Patient's alert and oriented x4. Patient's on room air with no respiratory distress noted. Patient has a saline lock on his left hand g#20. Safety measures are kept in place: Bed locked, side rails up x2, and call light within reach of the patient. Patient's in no acute distress at this time. Will continue to monitor the patient.
--- NOTE | 2021-02-21 19:39 | NUR ---
RN CLOSING NOTES PATIENT ASLEEP IN BED, EASY TO AROUSE. ALERT AND ORIENTED X 4. NO SIGNS OR SYMPTOMS OF DISTRESS NOTED. NO COMPLAINTS OF PAIN AT THIS TIME. PATIENT IS ABLE TO MAKE NEEDS KNOWN. INSERTED NEW IV AT AND#20 PATENT AND INTACT. ALL NEEDS MET THROUGHOUT SHIFT. SAFETY MEASURES IN PLACE WITH BED AT LOWEST POSITION AND SIDE RAILS UP X 2. CALL LIGHT IS WITHIN REACH. WILL ENDORSE CONTINUITY OF CARE TO ONCOMING SHIFT.
[2021-02-21 20:00] VITALS: BP 121/76
[2021-02-21] MEDS: ENOXAPARIN SODIUM 40 MG/0.4 ML DISP.SYRIN SQ SCH (21:36)
--- NOTE | 2021-02-21 23:05 | NUR ---
MS RN Notes Patient c/0 8/10 pain in his abdomen. Patient was given 1mg of Dilaudid IV at 2304. Will continue to monitor the patient.
[2021-02-22] VITALS (12 sets, daily range): BP systolic 123–148; BP diastolic 69–94
[2021-02-22] MEDS: HYDROMORPHONE INJ 2 MG/ML DISP.SYRIN IV PRN ×4 (03:22→21:47)
--- NOTE | 2021-02-22 03:22 | NUR ---
MS RN Notes Patient c/o 8/10 pain in his abdomen. Patient was given 1mg of Dilaudid IV at 0322. Will continue to monitor the patient.
[2021-02-22 06:11] LABS: BASOPHILS % (AUTO) 0.4 % (0.0-2.0); EOSINOPHILS % (AUTO) 3.7 % (0.0-6.0); HEMATOCRIT 43 % (39-51); LYMPHOCYTES # (AUTO) 1.7 K/uL (0.8-4.8); LYMPHOCYTES % (AUTO) 36.6 % (20.0-44.0); MEAN CORPUSCULAR HGB CONC 33 g/dl (31.0-36.0); MEAN CORPUSCULAR VOLUME 87 fL (80-96); MONOCYTES # (AUTO) 0.5 K/uL (0.1-1.30); MONOCYTES % (AUTO) 9.8 % (2.0-12.0); NEUTROPHILS # (AUTO) 2.3 K/uL (1.8-8.9); NEUTROPHILS % (AUTO) 49.5 % (43.0-81.0); PLATELET COUNT (AUTO) 354 K/uL (150-450); RED BLOOD CELL COUNT(AUTO) 4.86 MIL/uL (4.5-6.0); WHITE BLOOD COUNT (AUTO) 4.7 K/uL (4.3-11.0)
[2021-02-22 06:35] LABS: CALCIUM, SERUM 8.4 mg/dL (8.5-10.1); CREATININE 0.8 mg/dL (0.6-1.3); POTASSIUM 4.1 mmol/L (3.5-5.1)
--- NOTE | 2021-02-22 06:44 | NUR ---
MS RN Opening Notes Patient was seen awake resting in bed. Patient's alert and oriented x4. Patient's on room air with no respiratory distress noted. Patient has an IV access on his left hand gauge #20 which is currently running NS at 75ml/hour. Safety measures are kept in place: Bed locked, side rails up x2, and call light within reach of the patient. Patient's in no acute distress at this time. Will endorse care to the day shift nurse.
--- NOTE | 2021-02-22 07:40 | NUR ---
MS RN OPENING NOTES RECEIVED PATIENT IN BED, AWAKE, A/O X4. PATIENT ON ROOM AIR; BREATHING EVEN AND UNLABORED, NO SOB PRESENT. COMPLAINING OF PAIN IN THE ABDOMINAL AREA DUE TO HERNIA; AWAITING PROCEDURE. IV ACCESS ON RAC G # 20 AND L HAND G # 20; SL. SAFETY PRECAUTIONS IN PLACE; BED IN LOW POSITION AND LOCKED, RAILS UP X2, CALL LIGHT WITHIN REACH. WILL CONTINUE TO MONITOR PATIENT.
[2021-02-22] MEDS: PANTOPRAZOLE 40 MG VIAL IV SCH (08:16)
--- NOTE | 2021-02-22 08:22 | NUR ---
MS RN NOTES PATIENT COMPLAINING OF PAIN 8 OUT OF 10 IN HIS ABDOMINAL AREA. REQUESTING PRN PAIN MEDICATION. PAIN MEDICATIONS ADMINISTERED. WILL REASSESS.
--- NOTE | 2021-02-22 12:38 | NUR ---
MS RN NOTES PATIENT COMPLAINING OF PAIN 9 OUT OF 10 IN HIS ABDOMINAL AREA. REQUESTING PRN PAIN MEDICATION. PAIN MEDICATIONS ADMINISTERED. WILL REASSESS.
--- NOTE | 2021-02-22 16:22 | NUR ---
MS RN NOTES PATIENT LEFT FOR SURGERY
[2021-02-22] MEDS ORDERED: BUPIVACAINE MPF 0.5% W/EPI INJ 30 ML VIAL ONE (16:32)
[2021-02-22] MEDS ORDERED: LIDOCAINE 1% INJ 50 ML MDV IJ ONE (16:32)
[2021-02-22] MEDS ORDERED: FENTANYL PF 100MCG/2ML AMPUL ONE ×3 (16:35→18:52)
[2021-02-22] MEDS ORDERED: MIDAZOLAM HCL 2 MG/2ML VIAL ONE (16:35)
[2021-02-22] MEDS ORDERED: SUCCINYLCHOLINE CHLORIDE 20 MG/ML VIAL ONE (16:36)
[2021-02-22] MEDS ORDERED: ROCURONIUM BROMIDE 50 MG/5 ML ONE ×2 (16:36→17:23)
[2021-02-22] MEDS ORDERED: SEVOFLURANE 250 ML BOTTLE IH ONE (16:57)
[2021-02-22] MEDS ORDERED: LABETALOL HCL IV 100MG VIAL ONE (17:58)
[2021-02-22] MEDS ORDERED: HYDROMORPHONE INJ 2 MG/ML DISP.SYRIN ONE (18:31)
--- NOTE | 2021-02-22 18:43 | NUR ---
MS RN CLOSING NOTES PATIENT STILL IN SURGERY. WILL ENDORSE TO TRUCK TECHNICIAN NURSE FOR EDUARDO.
[2021-02-22] MEDS ORDERED: ANESTHESIA TRAY IN PYXIS 1 EA TRAY MC ONE (18:46)
--- NOTE | 2021-02-22 19:30 | NUR ---
MSRN PATIENT CAME FROM OR VIA BED, REPORT RECEIVED.. HAS ABDOMINAL BINDER ON. FULLY AWAKE APPEARS TO BE IN PAIN. KEPT COMFORTABLE. V/S POST OP ON PROGRESS. OR NURSE SHOWED ABDOMINAL DRESSING DRY AND INTACT AT LAP SITES WITH STERISTRIPS. PATIENT SCREAMING IN PAIN POST BINDER RELEASED. PLACED BINDER BACK ICEPACK OVER BINDER, INSTRUCTED PATIENT TO LIMIT HIS MOVEMENT TILL PAIN SUBSIDES FOR NOW. WAS MEDICATED BY OR NURSE FOR PAIN PRIOR TO TRANSFER. STAYED WITH PATIENT FOR AWHILE TILL PAIN TOLERABLE. CONTINUED.
--- NOTE | 2021-02-22 20:00 | NUR ---
MSRN POST OP PAIN TOLERABLE FOR NOW, RESTING QUIETLY V/S PER PROTOCOL, CLOSELY WATCHED.
[2021-02-22] MEDS: ENOXAPARIN SODIUM 40 MG/0.4 ML DISP.SYRIN SQ SCH (21:00)
[2021-02-23] VITALS: BP 162/93
--- NOTE | 2021-02-23 00:49 | NUR ---
MSRN REPORT GIVEN TO RN FOR CONTINUITY OF CARE.
[2021-02-23] MEDS: HYDROMORPHONE INJ 2 MG/ML DISP.SYRIN IV PRN ×6 (01:41→23:59)
--- NOTE | 2021-02-23 03:56 | NUR ---
RN NOTE ONE TIME DOSE OF DILAUDID 2 MG GIVEN FOR BREAKTHROUGH PAIN PER DR SIMMONS
[2021-02-23] MEDS ORDERED: HYDROMORPHONE INJ 2 MG/ML DISP.SYRIN IVP ONE (04:00)
--- NOTE | 2021-02-23 06:42 | NUR ---
RN CLOSING NOTES: PATIENT WAS PLACED IN BED AWAKE, A/O X4 AND ABLE TO EXPRESS NEEDS, PATIENT COME P/FROM SURGETY MEDICATION FOR PAIN GIVEN, PATIENT WAS PLACING HIMSELF IN COMFORTABLE POSITION, Addendum: 02/23/21 at 0646 by CARLOS A CABRAL RN USES URINAL ON CLEAR LIQUID DIET MAY ADVANCE TO DIET TOLERATED, WITH IV LINE AT LHAND#20 AND RAC#20 WITH NSS@75ML PER HOUR INFUSING WELL, PATIENT KEPT CLEAN ANDDRY, ALL NEEDS MET, KEPT CLEAN AND DRY, ENDORSE TO INCOMING SHIFT.
--- NOTE | 2021-02-23 07:15 | NUR ---
MS RN OPENING NOTE RECEIVED PATIENT ON BED SLEEPING BUT EASILY AROUSABLE, ALERT AND ORIENTED X 3. ABLE TO MAKE NEEDS KNOWN. PATIENT ON ABDOMINAL BINDER S/P SURGICAL PROCEDURE. PATIENT ON ROOM AIR WITH EQUAL AND UNLABORED BREATHING. WITH NO SIGNS OF RESPIRATORY DISTRESS. WITH RIGHT AC G20 ON SALINE LOCK PATENT AND INTACT. WITH LEFT HAND G20 WITH NS AT 75ML/HR, INFUSING WELL. MAINTAINED ON MODERATE TO HIGH BACK REST. CALL LIGHT WITHIN REACH AT ALL TIMES. SAFETY PRECAUTIONS MAINTAINED WITH BED LOCKED AND AT LOWEST POSITION. WILL CONTINUE TO MONITOR PATIENT.
[2021-02-23 07:49] LABS: BASOPHILS % (AUTO) 0.1 % (0.0-2.0); EOSINOPHILS % (AUTO) 0.2 % (0.0-6.0); HEMATOCRIT 47 % (39-51); HEMOGLOBIN 15.4 g/dL (13.5-17.5); LYMPHOCYTES # (AUTO) 1.1 K/uL (0.8-4.8); MEAN CORPUSCULAR HGB CONC 33 g/dl (31.0-36.0); MEAN CORPUSCULAR VOLUME 88 fL (80-96); MONOCYTES # (AUTO) 0.7 K/uL (0.1-1.30); MONOCYTES % (AUTO) 5.5 % (2.0-12.0); NEUTROPHILS # (AUTO) 10.6 K/uL (1.8-8.9); NEUTROPHILS % (AUTO) 85.2 % (43.0-81.0); PLATELET COUNT (AUTO) 378 K/uL (150-450); RED BLOOD CELL COUNT(AUTO) 5.33 MIL/uL (4.5-6.0); WHITE BLOOD COUNT (AUTO) 12.5 K/uL (4.3-11.0)
[2021-02-23 08:00] VITALS: BP 137/96
[2021-02-23 08:07] LABS: CALCIUM, SERUM 8.8 mg/dL (8.5-10.1); CREATININE 0.9 mg/dL (0.6-1.3); POTASSIUM 3.8 mmol/L (3.5-5.1)
[2021-02-23] MEDS: PANTOPRAZOLE 40 MG VIAL IV SCH (08:30)
[2021-02-23] MEDS ORDERED: HYDROMORPHONE 1 MG/1 ML DISP.SYRIN IV ONE (08:30)
--- NOTE | 2021-02-23 08:45 | NUR ---
MS RN NOTE PATIENT SEEN BY DR. PATE WITH NO NEW ORDER AT THIS TIME. WILL CONTINUE TO MONITOR PATIENT.
[2021-02-23] MEDS: IV NS 0.9% 1,000 ML IV PRN ×2 (09:55→21:53)
[2021-02-23] MEDS: IBUPROFEN 400 MG TABLET PO PRN ×2 (14:38→21:47)
--- NOTE | 2021-02-23 15:30 | NUR ---
MS RN NOTE PATIENT SEEN BY NETWORK SECURITY ADMINISTRATOR OF DR. RAMIREZ AND NOTIFIED OF PATIENT'S REFUSAL OF PT AND REQUEST FOR PAIN MEDICATION. NO NEW ORDER AT THIS TIME.
[2021-02-23 16:00] VITALS: BP 132/95
--- NOTE | 2021-02-23 18:57 | NUR ---
MS RN CLOSING NOTE PATIENT ON BED INTERMINTENTLY SLEEPING BUT EASILY AROUSABLE, ALERT AND ORIENTED X 3. ABLE TO MAKE NEEDS KNOWN. PATIENT ON ABDOMINAL BINDER S/P SURGICAL PROCEDURE. PATIENT ON ROOM AIR WITH EQUAL AND UNLABORED BREATHING. WITH NO SIGNS OF RESPIRATORY DISTRESS. WITH RIGHT AC G20 ON SALINE LOCK PATENT AND INTACT. WITH LEFT HAND G20 WITH NS AT 75ML/HR, INFUSING WELL. ON PAIN MANAGEMENT, PATIENT SLEEPS INTERMITTENTLY OBSERVED. MAINTAINED ON MODERATE TO HIGH BACK REST. CALL LIGHT WITHIN REACH AT ALL TIMES. SAFETY PRECAUTIONS MAINTAINED WITH BED LOCKED AND AT LOWEST POSITION. WILL ENDORSE PATIENT FOR CONTINUITY OF CARE.
[2021-02-23 20:00] VITALS: BP 123/83
--- NOTE | 2021-02-23 20:05 | NUR ---
MS RN NOTES COVERING FOR ROMA -- PATIENT C/O 05/05 PAIN. PER PATIENT AND FAMILY O.5 ML OF DILAUDID IS NOT ENOUGH DOSE FOR PATIENT. GIVEN 0.5 ML FOR NOW PRN. ENDORSED TO ROMA FOR CONTINUATION OF CARE.
--- NOTE | 2021-02-23 20:15 | NUR ---
MS/RN OPENING NOTE RECEIVED PATIENT RESTING IN BED WITH FAMILY AT BEDSIDE. ALERT AND ORIENTED X 4. ABLE TO MAKE NEEDS KNOWN. C/O PAIN TO SURGICAL SITE 03/05. PATIENT JUST RECEIVED DILAUDID AND STATES IT IS NOT STRONG ENOUGH. WILL CONTACT ON-CALL SUPERVISOR TOY PARTS FORMER IRIS. PATIENT CONTINUES ON ROOM AIR WITH NO S/SX OF RESPIRATORY DISTRESS NOTED. IV ACCESS TO RIGHT AC #20G AND LEFT HAND #20G INTACT AND PATENT. CONTINUES ON IVF NS 0.9% @ 75ML/HR. ABDOMINAL SURGICAL DRESSING AND ABDOMINAL BINDER CLEAN, DRY AND INTACT. CALL LIGHT WITHIN REACH. ASPIRATION, FALL AND SAFETY PRECAUTIONS MAINTAINED. WILL CONTINUE TO MONITOR.
--- NOTE | 2021-02-23 21:00 | NUR ---
MS/RN NOTE NOTIFIED PIANO ACCOMPANIST TRAFFIC ATTENDANT IRIS REGARDING PAIN MEDICATION AND REQUEST FOR INCREASED DOSE. CHELSEA SIMMONS WITH NO NEW ORDERS AT THIS TIME.
[2021-02-23] MEDS: ENOXAPARIN SODIUM 40 MG/0.4 ML DISP.SYRIN SQ SCH (21:33)
[2021-02-23] MEDS: LORAZEPAM INJ 2 MG/ML VIAL IV PRN (21:47)
[2021-02-23] MEDS ORDERED: oxyCODONE HCL SR 40MG TAB.SR.12H PO PRN ×2 (23:30)
[2021-02-23] MEDS ORDERED: NALOXONE HCL 0.4 MG/ML AMPUL IV PRN (23:30)
--- NOTE | 2021-02-23 23:50 | NUR ---
MS/RN NOTE NEW ORDER FROM REPORTING CONSULTANT CHELSEA SIMMONS: OXYCONTIN 30MG Q12HRS. ORDER CARRIED OUT.
[2021-02-24] MEDS: oxyCODONE HCL SR 10MG TAB.SR.12H PO SCH ×3 (00:44→21:03)
[2021-02-24] MEDS: HYDROMORPHONE INJ 2 MG/ML DISP.SYRIN IV PRN ×4 (05:33→21:16)
--- NOTE | 2021-02-24 06:05 | NUR ---
MS/RN CLOSING NOTE PATIENT CURRENTLY RESTING IN BED. ALERT AND ORIENTED X 4. ABLE TO MAKE NEEDS KNOWN. DENIES PAIN AT THIS TIME. PATIENT CONTINUES ON ROOM AIR WITH NO S/SX OF RESPIRATORY DISTRESS NOTED. IV ACCESS TO RIGHT AC #20G AND LEFT HAND #20G INTACT AND PATENT. CONTINUES ON IVF NS 0.9% @ 75ML/HR. ABDOMINAL SURGICAL DRESSING AND ABDOMINAL BINDER CLEAN, DRY AND INTACT. CALL LIGHT WITHIN REACH. ASPIRATION, FALL AND SAFETY PRECAUTIONS MAINTAINED. WILL ENDORSE PLAN OF CARE TO ONCOMING SHIFT.
[2021-02-24 06:08] LABS: BASOPHILS % (AUTO) 0.2 % (0.0-2.0); EOSINOPHILS % (AUTO) 1.2 % (0.0-6.0); HEMATOCRIT 44 % (39-51); HEMOGLOBIN 14.6 g/dL (13.5-17.5); LYMPHOCYTES # (AUTO) 1.8 K/uL (0.8-4.8); LYMPHOCYTES % (AUTO) 19.7 % (20.0-44.0); MEAN CORPUSCULAR HGB CONC 33 g/dl (31.0-36.0); MEAN CORPUSCULAR VOLUME 87 fL (80-96); MONOCYTES # (AUTO) 1.1 K/uL (0.1-1.30); MONOCYTES % (AUTO) 11.7 % (2.0-12.0); NEUTROPHILS % (AUTO) 67.2 % (43.0-81.0); PLATELET COUNT (AUTO) 369 K/uL (150-450); RED BLOOD CELL COUNT(AUTO) 5.06 MIL/uL (4.5-6.0)
[2021-02-24 06:25] LABS: CALCIUM, SERUM 8.6 mg/dL (8.5-10.1); POTASSIUM 3.7 mmol/L (3.5-5.1)
[2021-02-24] MEDS: LORAZEPAM INJ 2 MG/ML VIAL IV PRN ×2 (06:50→23:08)
--- NOTE | 2021-02-24 07:10 | NUR ---
MS RN OPENING NOTE RECEIVED PATIENT ON BED SLEEPING BUT AROUSABLE, ALERT AND ORIENTED X 3-4. ABLE TO MAKE NEEDS KNOWN. PATIENT ON ABDOMINAL BINDER S/P SURGICAL PROCEDURE. PATIENT ON ROOM AIR WITH EQUAL AND UNLABORED BREATHING. WITH NO SIGNS OF RESPIRATORY DISTRESS. WITH RIGHT AC G20 ON SALINE LOCK PATENT AND INTACT. WITH LEFT HAND G20 WITH NS AT 75ML/HR, INFUSING WELL. PATIENT ENCOURAGED TO DO INCENTIVE SPIROMETRY WHEN AWAKE AND ENCOURAGED TO AMBULATE. MAINTAINED ON MODERATE TO HIGH BACK REST. CALL LIGHT WITHIN REACH AT ALL TIMES. SAFETY PRECAUTIONS MAINTAINED WITH BED LOCKED AND AT LOWEST POSITION. WILL CONTINUE TO MONITOR PATIENT.
[2021-02-24 08:14] VITALS: BP 132/87
[2021-02-24] MEDS: PANTOPRAZOLE 40 MG VIAL IV SCH (08:38)
--- NOTE | 2021-02-24 09:00 | NUR ---
MS RN NOTE PATIENT SEEN BY DR. TRAN WITH NO NEW ORDERS AT THIS TIME.
[2021-02-24] MEDS: IBUPROFEN 400 MG TABLET PO PRN (10:42)
--- NOTE | 2021-02-24 11:10 | NUR ---
MS RN NOTE PATIENT SEEN BY PT AND WAS ABLE TO DO SOME AMBULATORY EXERCISES. WILL CONTINUE TO MONITOR PATIENT.
[2021-02-24] MEDS ORDERED: HYDROMORPHONE 1 MG/1 ML DISP.SYRIN IV PRN (16:00)
[2021-02-24 16:33] VITALS: BP 113/76
--- NOTE | 2021-02-24 19:05 | NUR ---
MS RN CLOSING NOTE PATIENT ON BED ALERT AND ORIENTED X 3-4. ABLE TO MAKE NEEDS KNOWN. PATIENT ON ABDOMINAL BINDER S/P SURGICAL PROCEDURE. PATIENT ON ROOM AIR WITH EQUAL AND UNLABORED BREATHING. WITH NO SIGNS OF RESPIRATORY DISTRESS. WITH RIGHT AC G20 ON SALINE LOCK PATENT AND INTACT. PATIENT ENCOURAGED TO DO INCENTIVE SPIROMETRY WHEN AWAKE AND ENCOURAGED TO AMBULATE. MAINTAINED ON MODERATE TO HIGH BACK REST. CALL LIGHT WITHIN REACH AT ALL TIMES. SAFETY PRECAUTIONS MAINTAINED WITH BED LOCKED AND AT LOWEST POSITION. WILL ENDORSE PATIENT FOR CONTINUITY OF CARE.
--- NOTE | 2021-02-24 19:51 | NUR ---
MS RN OPENING NOTES PATIENT IN BED, ON THE PHONE. A/OX4, FORGETFUL. NO S/S OF APPARENT DISTRESS. NO C/O PAIN AT THIS TIME. NO FLUIDS RUNNING AT THIS TIME. SAFETY IN PLACE: BED IN LOWEST, LOCKED POSITION, CALL LIGHT WITHIN REACH. WILL CONTINUE TO MONITOR. Addendum: 02/24/21 at 1954 by KAYLEIGH PARRISH RN MS RN OPENING NOTES PATIENT IN BED, ON THE PHONE. A/OX4. NO S/S OF APPARENT DISTRESS. NO C/O PAIN AT THIS TIME. NO FLUIDS RUNNING AT THIS TIME. SAFETY IN PLACE: BED IN LOWEST, LOCKED POSITION, CALL LIGHT WITHIN REACH. WILL CONTINUE TO MONITOR.
[2021-02-24 20:00] VITALS: BP 125/75
--- NOTE | 2021-02-24 21:16 | NUR ---
MS RN NOTES PATIENT C/O NAUSEA. GIVEN ZOFRAN 2ML PRN BEFORE PAIN MEDICATION. WILL REASSESS.
[2021-02-24] MEDS: ENOXAPARIN SODIUM 40 MG/0.4 ML DISP.SYRIN SQ SCH (21:20)
--- NOTE | 2021-02-24 21:20 | NUR ---
MS RN NOTES PATIENT C/O 05/05 PAIN. UPON THE ADMINISTRATION OF THE SCHEDULED OXYCODONE PATIENT COMPLAINING THAT IT TAKES AWHILE FOR THE PILLS TO WORK HENCE HE ASKED FOR DILAUDID SHOT. I TOLD PATIENT IF HE WOULD LIKE TO TAKE THE PILLS FIRST SINCE IT IS SCHEDULED AT 2100 AND SCANNED ALREADY HE ADAMANTLY DECLINED AND STILL ASKED FOR THE DILAUDID IV. UPON AGREEMENT, PATIENT AGREED TO TAKE THE 3 TABLETS OF OXYCODONE (ALREADY SCANNED) AN HOUR AFTER THE DILAUDID SHOT. MADE CHARGE NURSE KNOWN. GIVEN 1ML OF DILAUDID PRN.
--- NOTE | 2021-02-24 22:30 | NUR ---
MS RN NOTES PATIENT C/O UNRELIEVED PAIN. PATIENT HAS NOT TAKEN SCHEDULED OXYCODONE TABLETS YET. EXPLAINED [facility] ADVERSE EFFECT OF PAIN MEDICATIONS. PATIENT ACKNOWLEDGES THIS AND PERSISTED. GIVEN DILAUDID 0.5 ML FOR BREAKTHROUGH PAIN. WILL REASSESS AND CONTINUE TO MONITOR.
--- NOTE | 2021-02-24 23:10 | NUR ---
MS RN NOTES PATIENT REQUESTED ATIVAN. PER PATIENT HE TAKES IT FOR HIM TO GET SOME SLEEP. GIVEN ATIVAN 0.5 ML PRN. WILL REASSESS.
--- NOTE | 2021-02-24 23:15 | NUR ---
MS RN NOTES' PATIENT TOOK THE 2100 DOSE OF OXYCODONE AT THIS TIME <3 TABS> 1 HOUR AFTER DILAUDID SHOT. RESPIRATION WNL AND UNLABORED. WILL REASSESS AND CONTINUE TO MONITOR.
[2021-02-25] MEDS: HYDROMORPHONE INJ 2 MG/ML DISP.SYRIN IV PRN ×2 (02:13→08:35)
--- NOTE | 2021-02-25 02:17 | NUR ---
MS RN NOTES PATIENT CRYING OF PAIN AT THIS TIME AFTER AMBULATING. PER PATIENT PAIN RIGHT NOW IS BACK TO 8-9/10. GIVEN DILAUDID 0.5 OF 2MG. WILL REASSESS.
[2021-02-25 06:41] LABS: BASOPHILS % (AUTO) 0.1 % (0.0-2.0); EOSINOPHILS % (AUTO) 1.6 % (0.0-6.0); HEMATOCRIT 42 % (39-51); HEMOGLOBIN 13.7 g/dL (13.5-17.5); LYMPHOCYTES # (AUTO) 0.9 K/uL (0.8-4.8); LYMPHOCYTES % (AUTO) 11.3 % (20.0-44.0); MEAN CORPUSCULAR HGB CONC 33 g/dl (31.0-36.0); MEAN CORPUSCULAR VOLUME 89 fL (80-96); MONOCYTES # (AUTO) 0.7 K/uL (0.1-1.30); MONOCYTES % (AUTO) 9.2 % (2.0-12.0); NEUTROPHILS # (AUTO) 6.2 K/uL (1.8-8.9); NEUTROPHILS % (AUTO) 77.8 % (43.0-81.0); PLATELET COUNT (AUTO) 338 K/uL (150-450); RED BLOOD CELL COUNT(AUTO) 4.72 MIL/uL (4.5-6.0)
[2021-02-25 06:56] LABS: CALCIUM, SERUM 8.9 mg/dL (8.5-10.1); CREATININE 0.9 mg/dL (0.6-1.3); POTASSIUM 4.2 mmol/L (3.5-5.1)
[2021-02-25] MEDS ORDERED: PANTOPRAZOLE 40 MG TABLET.DR PO SCH (07:30)
--- NOTE | 2021-02-25 07:30 | NUR ---
MS RN NOTES REPORT GIVEN TO MATTHEW FOR CONTINUITY OF CARE.
--- NOTE | 2021-02-25 07:51 | NUR ---
MS RN OPENING NOTES RECEIVED PATIENT IN BED, AWAKE, A/O X4. PATIENT ON ROOM AIR; BREATHING EVEN AND UNLABORED, NO SOB PRESENT. COMPLAINING OF PAIN POST PROCEDURE. IV ACCESS ON R WRIST G #20; SL. SAFETY PRECAUTIONS IN PLACE; BED IN LOW POSITION AND LOCKED, RAILS UP X2, CALL LIGHT WITHIN REACH. WILL CONTINUE TO MONITOR PATIENT.
[2021-02-25] MEDS: oxyCODONE HCL SR 10MG TAB.SR.12H PO SCH (08:24)
[2021-02-25 08:29] VITALS: BP 132/91
--- NOTE | 2021-02-25 08:40 | NUR ---
MS RN NOTES PATIENT COMPLAINING OF PAIN 9 OUT OF 10 POST PROCEDURE. REQUESTING PRN MEDICATION. PRN DILAUDID IM ADMINISTERED PER MD ORDER. WILL REASSESS.
[2021-02-25] MEDS ORDERED: SENNOSIDES/DOCUSATE SODIUM 1 TAB TABLET PO SCH (09:00)
[2021-02-25] MEDS ORDERED: HYDR-3972 PO (12:01)
[2021-02-25] MEDS ORDERED: HYDROMORPHONE INJ 2 MG/ML DISP.SYRIN IM PRN (12:30)
--- NOTE | 2021-02-25 12:48 | NUR ---
MS RN NOTES PATIENT COMPLAINING OF PAIN 8 OUT OF 10 POST PROCEDURE. REQUESTING PRN MEDICATION. PRN DILAUDID IM ADMINISTERED PER MD ORDER. WILL REASSESS.
--- NOTE | 2021-02-25 13:23 | NUR ---
MS JET AIRCRAFT SERVICER NOTES PATIENT DISCHARGED HOME IN MEDICALLY STABLE CONDITION. PATIENT A/O X4 AND ABLE TO MAKE NEEDS KNOWN. ALL DISCHARGE PAPERWORK READY AND TEACHING PROVIDED TO PATIENT REGARDING PHYSICIAN INSTRUCTIONS AND PRESCRIBED MEDICATIONS. PATIENT VERBALIZED UNDERSTANDING. BELONGINGS ACCOUNTED FOR AND FORM SIGNED WELL. IV ACCESS REMOVED. PATIENT LEFT THE UNIT VIA WHEELCHAIR ACCOMPANIED BY SUPERVISOR NET MAKING AND SON. PATIENT AND SON LEFT THE HOSPITAL IN A PRIVATE CAR.
== END 2021-02-25 13:25 | disposition home or self-care (01) | DRG 227 ==
LOC: ER 09:25 → TRANSITION 20:53 → MED 21:03
PROVIDERS: ADMIT Nurse Practitioner Acute Care; ATTEND Nurse Practitioner Acute Care
PROC: 0WUF4JZ Supplement Abdominal Wall with Synthetic Substitute, Percutaneous Endoscopic Approach (ICD-10-PCS; principal; 2021-02-22)
PROC: 0DBU4ZZ Excision of Omentum, Percutaneous Endoscopic Approach (ICD-10-PCS; 2021-02-22)
PROC: 0DBW4ZZ Excision of Peritoneum, Percutaneous Endoscopic Approach (ICD-10-PCS; 2021-02-22)
DX: K43.0 Incisional hernia with obstruction, without gangrene (principal); E66.01 Morbid (severe) obesity due to excess calories; G47.33 Obstructive sleep apnea (adult) (pediatric); K57.90 Diverticulosis of intestine, part unspecified, without perforation or abscess without bleeding; Z68.36 Body mass index [BMI] 36.0-36.9, adult; K42.9 Umbilical hernia without obstruction or gangrene; I10 Essential (primary) hypertension; Z98.890 Other specified postprocedural states; K63.89 Other specified diseases of intestine; Z79.899 Other long term (current) drug therapy; K57.30 Diverticulosis of large intestine without perforation or abscess without bleeding; K59.00 Constipation, unspecified; R73.03 Prediabetes; R73.9 Hyperglycemia, unspecified; W34.00XS Accidental discharge from unspecified firearms or gun, sequela; Z87.442 Personal history of urinary calculi; M25.511 Pain in right shoulder; N20.0 Calculus of kidney; F41.9 Anxiety disorder, unspecified; Z20.822 Contact with and (suspected) exposure to COVID-19
CPT/HCPCS: 36415; 71045-TC; 80048-TC; 80061-TC; 80076-TC; 83605-TC; 83690-TC; 83735-TC; 84100-TC; 84443-TC; 85025-TC; 85610-TC; 85730-TC; 86850-TC; 87081-TC; 87086-TC; 88304-TC; 88305-TC; 93307-TC; 97116-TC; 97530-TC; C1874; C9113; C9803; G0378; J0330; J1100; J1170; J1650; J2060; J2250; J2270; J2405; J2704; J3010; J3490; J7030

== ENCOUNTER 2021-03-01 22:18 | Inpatient (IN) | payer OTHER ==
[~2021-03-01] VITALS: Ht 177.8 cm; Wt 106.1 kg
[~2021-03-01 22:18] MED LIST changes: +AMLO10TA4 PO; -AMOX500T2 PO; -ASPI-1169 PO; -AZIT250T PO; +CYCL5TAB PO; +GABA600T12 PO; +HYDR-3972 PO
[2021-03-01] MEDS ORDERED: VANCOMYCIN 1 GM in IV D5W 250 ML IV ONE (23:00)
[2021-03-01] MEDS ORDERED: IV NS 0.9% 1,000 ML BAG IV ONE (23:00)
[2021-03-01] MEDS ORDERED: PIPERACILLIN /TAZOBACTAM 3.375 G in IV D5W 50 ML IV ONE (23:00)
--- NOTE | 2021-03-01 23:00 | NUR ---
COVID SWAB COLLECTED AND SENT TO LAB
[2021-03-01 23:12] LABS: BASOPHILS % (AUTO) 0.4 % (0.0-2.0); HEMATOCRIT 40 % (39-51); HEMOGLOBIN 13.3 g/dL (13.5-17.5); LYMPHOCYTES # (AUTO) 0.4 K/uL (0.8-4.8); LYMPHOCYTES % (AUTO) 4.6 % (20.0-44.0); MEAN CORPUSCULAR HGB CONC 34 g/dl (31.0-36.0); MEAN CORPUSCULAR VOLUME 87 fL (80-96); MONOCYTES % (AUTO) 10.6 % (2.0-12.0); NEUTROPHILS # (AUTO) 8.1 K/uL (1.8-8.9); NEUTROPHILS % (AUTO) 84.4 % (43.0-81.0); PLATELET COUNT (AUTO) 340 K/uL (150-450); RED BLOOD CELL COUNT(AUTO) 4.58 MIL/uL (4.5-6.0); WHITE BLOOD COUNT (AUTO) 9.6 K/uL (4.3-11.0)
[2021-03-01 23:22] LABS: CALCIUM, SERUM 8.4 mg/dL (8.5-10.1); CARBON DIOXIDE 27 mmol/L (21-32); CHLORIDE 98 mmol/L (98-107); CREATININE 1.3 mg/dL (0.6-1.3); GLUCOSE 154 mg/dL (74-106); POTASSIUM 4.1 mmol/L (3.5-5.1); SODIUM SERUM 133 mmol/L (136-145); UREA NITROGEN, BLOOD 14 mg/dL (7-18)
[2021-03-01] MEDS ORDERED: IV NS 0.9% 250 ML IV ONE (23:23)
[2021-03-01] MEDS ORDERED: CT SWABBABLE VALVE TRANS SET 1 EA INFUS.SET MC ONE (23:23)
[2021-03-01] MEDS ORDERED: PIPERACILLIN /TAZOBACTAM 3.375 G VIAL IV ONE (23:23)
[2021-03-01] MEDS ORDERED: IOHEXOL-300 100 ML VIAL IV ONE (23:23)
[2021-03-01 23:29] LABS: ALANINE AMINOTRANSFERASE 34 U/L (12-78); ALKALINE PHOSPHATASE 101 U/L (46-116); ASPARTATE AMINOTRANSFERASE 53 U/L (15-37); BILIRUBIN,DIRECT 0.3 mg/dL (0.0-0.2); BILIRUBIN,TOTAL 0.6 mg/dL (0.2-1.0); TOTAL PROTEIN, SERUM 7.1 g/dL (6.4-8.2)
--- NOTE | 2021-03-01 23:51 | NUR ---
PATIENT TAKEN TO CT
--- NOTE | 2021-03-02 00:38 | NUR ---
URINE SPECIMEN COLLECTED AND SENT TO LAB
[2021-03-02 01:15] LABS: BILIRUBIN,URINE Negative (NEGATIVE); COLOR,URINE YELLOW (YELLOW); LEUKOCYTE ESTERASE ,URINE Negative (NEGATIVE); NITRITE, URINE Negative (NEGATIVE); PROTEIN,URINE Trace mg/dl (NEGATIVE); UGLUCOSE Negative (NEGATIVE)
[2021-03-02 01:55] LABS: BACTERIA,URINE None seen /HPF (None Seen); SQUAMOUS EPITHELIAL CELL,UR Few /HPF (None Seen)
[2021-03-02 01:57] LABS: WBC,URINE 0-2 /HPF (0-3)
[2021-03-02] MEDS ORDERED: MORPHINE SULFATE INJ 2 MG/ML DISP.SYRIN IV PRN (04:00)
[2021-03-02] MEDS ORDERED: Z GUARD REMEDY 2 OZ OINT TP PRN (04:00)
[2021-03-02] MEDS ORDERED: ONDANSETRON HCL/PF 4 MG/2 ML VIAL IVP PRN (04:00)
--- NOTE | 2021-03-02 07:25 | NUR ---
ASSESSED PT ON BED ASLEEP EASILY AROUSABLE. PT AAOX4, NOT IN RESPIRATORY DISTRESS, HOOKED TO FIXED WING PILOT, KEPT RESTED AND COMFORTABLE. AWAITING ROOM FOR ADMISSION.
[2021-03-02] MEDS: IV NS 0.9% 1,000 ML IV PRN (08:01)
[2021-03-02] MEDS ORDERED: ACETAMINOPHEN 325 MG TABLET ONE (08:08)
[2021-03-02] MEDS: ACETAMINOPHEN 325 MG TABLET PO PRN ×2 (08:12→19:56)
[2021-03-02] MEDS ORDERED: AMLODIPINE BESYLATE 10 MG TABLET ONE (10:59)
[2021-03-02] MEDS ORDERED: hydrALAZINE HCL IV 20 MG VIAL IV PRN (11:00)
[2021-03-02] MEDS: PIPERACILLIN /TAZOBACTAM 3.375 G in IV D5W 50 ML IV SCH ×3 (11:00→23:37)
[2021-03-02] MEDS: AMLODIPINE BESYLATE 10 MG TABLET PO SCH (11:02)
[2021-03-02] MEDS: LISINOPRIL (20MG) 20 MG TABLET PO SCH (11:11)
--- NOTE | 2021-03-02 11:40 | NUR ---
BED ASSIGNMENT TO 103
--- NOTE | 2021-03-02 12:00 | NUR ---
REPORT GIVEN TO MARCO A MONTERO FOR EDUARDO. WITH ONGOING IVF NS INFUSING WELL.
[2021-03-02 13:00] VITALS: BP 129/77
[2021-03-02] MEDS: VANCOMYCIN 1 GM in IV D5W 250 ML IV SCH (13:12)
[2021-03-02] MEDS: GABAPENTIN 300 MG CAPSULE PO SCH ×2 (13:12→17:40)
--- NOTE | 2021-03-02 14:30 | NUR ---
RN Note: Pt admitted from ER Alert awake oriented X 4. On RA, no breathing distress noted. Room orientation provided. IV site intact, running with IV fluids as ordered. Skin intact. Mid abdominal line surgical incision,intact, clean & dry. COVID rapid pending. Continue on isolation. Encourage pt to use call light for assistance.
[2021-03-02 16:00] VITALS: BP 130/79
--- NOTE | 2021-03-02 19:06 | NUR ---
CONTINUITY OF CARE Patient in bed, awake, agitated looking for his cellphone. Angry to staff, claimed he was not given pain medication in a long time, nobody check on him, and he's been asking for Juice in the last 2 hours. Staff tried to look for his cellphone, bedside table showed lots of empty box of juice. Educate patient on pain medication indication and possible side effect, and PPE to use. Able to control behavior less at this time. Will cont to provide care.
--- NOTE | 2021-03-02 19:59 | NUR ---
ELEVATED TEMP Temp 101.F patient feels upset, c/o not getting strong pain medication. Patient received Morphine at 1754 per report and not due until 2200. Education given, Morphine indication and possible side effect given. Notified MD. Tylenol given for fever, will reassess.
[2021-03-02 20:00] VITALS: BP 150/87
[2021-03-02] MEDS: HYDROCODONE/APAP 5/325MG TABLET PO PRN (20:24)
[2021-03-02] MEDS: CYCLOBENZAPRINE 10 MG TABLET PO SCH (21:46)
[2021-03-02] MEDS: ZOLPIDEM TARTRATE 5 MG TABLET PO PRN (21:46)
[2021-03-02] MEDS: HYDROMORPHONE 1 MG/1 ML DISP.SYRIN IV PRN (21:47)
--- NOTE | 2021-03-02 21:52 | NUR ---
PAIN MEDICATION CHANGED Pain reassessment [place] ineffective per patient and previous Morphine. Dr. Kovacs with new orders given. Now on jaspreet Martel Morphine. Patient thankful and appreciated new pain medication that he requested effective for his abdominal pain. Unable to sleep, given Ambien, will reassess hours of sleep.
[2021-03-03] MEDS: VANCOMYCIN 1 GM in IV D5W 250 ML IV SCH ×2 (00:59→12:22)
[2021-03-03] MEDS: HYDROMORPHONE 1 MG/1 ML DISP.SYRIN IV PRN ×6 (01:50→20:09)
--- NOTE | 2021-03-03 01:50 | NUR ---
PAIN Patient c/o abdominal/back pain. Denies N/V. Given Dilaudid, will reassess.
[2021-03-03 04:00] VITALS: BP 120/87
[2021-03-03] MEDS: ACETAMINOPHEN 325 MG TABLET PO PRN ×3 (04:22→23:32)
[2021-03-03] MEDS: PIPERACILLIN /TAZOBACTAM 3.375 G in IV D5W 50 ML IV SCH (05:10)
--- NOTE | 2021-03-03 06:21 | NUR ---
END OF SHIRT REPORT Patient is A/O x3. Ongoing IVF. Tmax 101F, given Tylenol and cooling measure. Informed ID Nehra, patient on Abx Zosyn and Vancomycin, blood cx/urine cx pending result. Abdomen rounded and distended, incision site with steri strip in place, no bleeding, abdominal binder in place. Abdomen/right arm pain controlled with Dilaudid. Plan possible IR drainage. Will endorse to oncoming RN.
[2021-03-03] MEDS: IV NS 0.9% 1,000 ML IV PRN (07:27)
[2021-03-03 07:42] LABS: BASOPHILS % (AUTO) 0.1 % (0.0-2.0); HEMATOCRIT 39 % (39-51); LYMPHOCYTES # (AUTO) 0.3 K/uL (0.8-4.8); LYMPHOCYTES % (AUTO) 5.3 % (20.0-44.0); MEAN CORPUSCULAR HGB CONC 33 g/dl (31.0-36.0); MEAN CORPUSCULAR VOLUME 86 fL (80-96); MONOCYTES # (AUTO) 0.4 K/uL (0.1-1.30); MONOCYTES % (AUTO) 7.2 % (2.0-12.0); NEUTROPHILS # (AUTO) 5.4 K/uL (1.8-8.9); NEUTROPHILS % (AUTO) 87.4 % (43.0-81.0); PLATELET COUNT (AUTO) 298 K/uL (150-450); RED BLOOD CELL COUNT(AUTO) 4.55 MIL/uL (4.5-6.0); WHITE BLOOD COUNT (AUTO) 6.1 K/uL (4.3-11.0)
[2021-03-03] MEDS: GABAPENTIN 300 MG CAPSULE PO SCH ×3 (08:20→16:00)
[2021-03-03] MEDS: AMLODIPINE BESYLATE 10 MG TABLET PO SCH (08:21)
[2021-03-03] MEDS: LISINOPRIL (20MG) 20 MG TABLET PO SCH (08:21)
[2021-03-03 08:22] VITALS: BP 119/74
[2021-03-03 08:33] LABS: CHOLESTEROL 97 mg/dL (<200); LDL 54 mg/dL (0-99); TRIGLYCERIDES 151 mg/dL (30-150)
[2021-03-03 08:34] LABS: HDL CHOLESTEROL < 10 mg/dL (40-60)
[2021-03-03 08:37] LABS: ALANINE AMINOTRANSFERASE 46 U/L (12-78); ALBUMIN 2.5 g/dL (3.4-5.0); ALKALINE PHOSPHATASE 99 U/L (46-116); ASPARTATE AMINOTRANSFERASE 52 U/L (15-37); BILIRUBIN,TOTAL 0.5 mg/dL (0.2-1.0); CALCIUM, SERUM 8.1 mg/dL (8.5-10.1); CARBON DIOXIDE 27 mmol/L (21-32); CHLORIDE 97 mmol/L (98-107); CREATININE 1.1 mg/dL (0.6-1.3); GLUCOSE 174 mg/dL (74-106); PHOSPHORUS 1.2 mg/dL (2.5-4.9); POTASSIUM 3.9 mmol/L (3.5-5.1); SODIUM SERUM 131 mmol/L (136-145); TOTAL PROTEIN, SERUM 6.6 g/dL (6.4-8.2); UREA NITROGEN, BLOOD 7 mg/dL (7-18)
--- NOTE | 2021-03-03 11:38 | NUR ---
ADMINISTERED TYLENOL FOR FEVER OF 101.
[2021-03-03] MEDS: SIMETHICONE 80 MG TAB.CHEW PO PRN (12:18)
[2021-03-03] MEDS: MEROPENEM 1 G in IV NS 0.9% 100 ML IV SCH ×2 (12:26→21:51)
[2021-03-03] MEDS ORDERED: MEROPENEM 500 MG in IV NS 0.9% 50 ML IV SCH (13:00)
[2021-03-03] MEDS ORDERED: K PHOS NEUTRAL 250 MG TABLET PO ONE (15:30)
[2021-03-03 16:00] VITALS: BP 118/74
--- NOTE | 2021-03-03 18:39 | NUR ---
MS RN CLOSING NOTE PATIENT CURRENTLY LYING IN BED, RESTING. EASY TO AROUSE. A/O X4. STABLE ON ROOM AIR - NO SOB NOTED. NO DISTRESS/DISCOMFORT NOTED. LAST PAIN MEDICATION GIVEN @ 1604 - DILAUDID 1MG IV. IV ACCESS TO LEFT HAND #20 - RUNNING NS @ 75ML/HR. SAFETY MEASURES IN PLACE. CALL LIGHT WITHIN REACH. WILL ENDORSE TO LOOP DRIER OPERATOR NURSE FOR EDUARDO.
--- NOTE | 2021-03-03 19:30 | NUR ---
RN NOTE PT RECEIVED IN BED. CURRENTLY ON ROOM AIR SHOWING NO S/S OF RESP DISTRESS/SOB. A&OX4. PT ON REGULAR DIET. IV ON LEFT HAND GAUGE 20 FLUSHED, PATENT, AND INTACT WITH NO INFILTRATION. ALL SAFETY MEASURES IMPLEMENTED. CALL LIGHT WITHIN REACH. BED ALARM ON. BED LOCKED AND IN LOWEST POSITION. WILL CONTINUE TO MONITOR THROUGHOUT THE SHIFT.
[2021-03-03 20:00] VITALS: BP 129/83
[2021-03-03] MEDS: CYCLOBENZAPRINE 10 MG TABLET PO SCH (21:51)
--- NOTE | 2021-03-03 23:30 | NUR ---
RN NOTE PT TEMPERATURE 102. TYLENOL ADMINISTERED AND COOLING MEASURES INITIATED. WILL RE-ASSESS IN 30m.
--- NOTE | 2021-03-04 00:01 | NUR ---
RN NOTE PT TEMPERATURE NOW 99.1. WILL CONTINUE TO MONITOR AND ASSESS THROUGHOUT THE SHIFT.
[2021-03-04] MEDS: VANCOMYCIN HCL 1.25 GM in IV D5W 250 ML IV SCH ×2 (00:14→15:12)
[2021-03-04] MEDS: HYDROMORPHONE 1 MG/1 ML DISP.SYRIN IV PRN ×6 (00:15→22:43)
[2021-03-04] MEDS: IV NS 0.9% 1,000 ML IV PRN (01:47)
[2021-03-04 04:00] VITALS: BP 124/76
--- NOTE | 2021-03-04 06:57 | NUR ---
RN NOTE NO CHANGES IN PT CONDITION DURING SHIFT. PT IS ON ROOM AIR WITH NO S/S OF RESP DISTRESS/SOB. A&OX4. PT HS IV ON LEFT HAND #20 INFUSING NS @ 75 ML/HR. IV LINE FLUSHED, PATENT, AND INTACT. ALL DUE MEDS GIVEN ORDERED. PT KEPT CLEAN AN COMFORTABLE. ALL SAFETY MEASURES IMPLEMENTED. CALL LIGHT WITHIN REACH. BED ALARM ON. BED LOCKED AND IN LOWEST POSITION. WILL ENDORSE TO MORNING SHIFT RN FOR EDUARDO.
--- NOTE | 2021-03-04 07:37 | NUR ---
MS RN OPENING NOTE PATIENT IS IN BED RESTING, PATIENT IS IN NO ACUTE DISTRESS. PATIENT IS ON ROOM AIR TOLERATING WELL. SAFETY PRECAUTIONS ARE ON, BED IS LOCKED IN THE LOWEST POSITION WITH SIDE RAILS UP, CALL LIGHT WITHIN REACH, WILL CONTINUE TO MONITOR CLOSELY.
[2021-03-04 08:37] LABS: CALCIUM, SERUM 8.1 mg/dL (8.5-10.1); PHOSPHORUS 2.5 mg/dL (2.5-4.9)
[2021-03-04] MEDS: GABAPENTIN 300 MG CAPSULE PO SCH ×3 (10:09→17:06)
[2021-03-04] MEDS: AMLODIPINE BESYLATE 10 MG TABLET PO SCH (10:10)
[2021-03-04] MEDS: LISINOPRIL (20MG) 20 MG TABLET PO SCH (10:18)
[2021-03-04 12:00] VITALS: BP 141/68
--- NOTE | 2021-03-04 17:04 | NUR ---
MS RN NOTE PATIENT HAS A FEVER OF 100.7, COOLING MEASURES PROVIDED, ALONG WITH TYLENOL 650MG, WILL REASSESS.
[2021-03-04] MEDS: ACETAMINOPHEN 325 MG TABLET PO PRN (17:06)
[2021-03-04] MEDS: ENOXAPARIN SODIUM 100 MG/ML DISP.SYRIN SQ SCH (18:05)
--- NOTE | 2021-03-04 18:49 | NUR ---
MS RN CLOSING NOTE PATIENT IS IN BED RESTING, PATIENT IS IN NO ACUTE DISTRESS. PATIENT IS ON ROOM AIR TOLERATING WELL. SAFETY PRECAUTIONS ARE ON, BED IS LOCKED IN THE LOWEST POSITION WITH SIDE RAILS UP, CALL LIGHT WITHIN REACH, ENDORSE PATIENT TO PNEUMATIC JACKETER NURSE FOR EDUARDO.
[2021-03-04 20:00] VITALS: BP 108/62
[2021-03-04] MEDS: CYCLOBENZAPRINE 10 MG TABLET PO SCH (21:30)
[2021-03-04 22:30] VITALS: BP 130/61
--- NOTE | 2021-03-04 22:35 | NUR ---
RN NOTES, PATIENT TRANSFERRED TO 3W FLOOR ROOM 304-1 IN STABLE CONDITION ACCOMPANIED BY CHARGE NURSE DORIS STRICKLAND, PATIENT AWARE AND VERBALIZED UNDERSTANDING.
[2021-03-04 22:40] VITALS: BP 130/61
--- NOTE | 2021-03-04 22:40 | NUR ---
Patient received in stable condition. Room 304-1 Hooked back up to IVF, DVT pumps applied to calves. Initial VSS Temp 98.2, HR 103, RR 18, BP 130/61, O2 99%. Patient c/o 10/10 abdominal pain given PRN dilaudid as per order. No other issues at this time. R arm kept elevated. Oriented to unit and protocols. Bed locked and in lowest position, call light in place.
--- NOTE | 2021-03-05 00:30 | NUR ---
Realized patient missed 3 doses of merrem in [place]. Asked YOSEPH KAMARA if okay to resume. Stated resume NOW. Called pharmacy to retime so that it will be infused at 0200 after the Vanco infusion.
[2021-03-05] MEDS: ACETAMINOPHEN 325 MG TABLET PO PRN ×3 (00:35→19:13)
[2021-03-05] MEDS: HYDROCODONE/APAP 5/325MG TABLET PO PRN (00:41)
--- NOTE | 2021-03-05 00:44 | NUR ---
Patient having fever 100.1 tylenol given as per order. Cooling measures applied. Will reassess.
[2021-03-05] MEDS: VANCOMYCIN HCL 1.25 GM in IV D5W 250 ML IV SCH ×2 (01:04→11:54)
[2021-03-05] MEDS: MEROPENEM 1 G in IV NS 0.9% 100 ML IV SCH ×3 (02:09→17:01)
[2021-03-05] MEDS: HYDROMORPHONE 1 MG/1 ML DISP.SYRIN IV PRN ×7 (02:17→23:03)
--- NOTE | 2021-03-05 05:28 | NUR ---
fever resolved 98.2
[2021-03-05] MEDS: IV NS 0.9% 1,000 ML IV PRN (05:58)
--- NOTE | 2021-03-05 06:24 | NUR ---
Patient has been A&Ox4, sleeping intermittently but either waking up in pain or fever. Pain managed with PRN dilaudid and norco. Fever managed with cooling measures and PRN Tylenol. Am temperature was 98.2, patient stated he is feeling better than earlier in the night. Tolerating IV ABX well. R arm still red and swollen kept elevated on pillow.
[2021-03-05 06:59] LABS: BASOPHILS % (AUTO) 0.4 % (0.0-2.0); EOSINOPHILS % (AUTO) 0.8 % (0.0-6.0); HEMATOCRIT 37 % (39-51); HEMOGLOBIN 12.4 g/dL (13.5-17.5); LYMPHOCYTES # (AUTO) 0.7 K/uL (0.8-4.8); LYMPHOCYTES % (AUTO) 10.5 % (20.0-44.0); MEAN CORPUSCULAR HGB CONC 33 g/dl (31.0-36.0); MEAN CORPUSCULAR VOLUME 85 fL (80-96); MONOCYTES # (AUTO) 0.8 K/uL (0.1-1.30); MONOCYTES % (AUTO) 12.8 % (2.0-12.0); NEUTROPHILS # (AUTO) 4.7 K/uL (1.8-8.9); NEUTROPHILS % (AUTO) 75.5 % (43.0-81.0); PLATELET COUNT (AUTO) 316 K/uL (150-450); RED BLOOD CELL COUNT(AUTO) 4.34 MIL/uL (4.5-6.0); WHITE BLOOD COUNT (AUTO) 6.3 K/uL (4.3-11.0)
[2021-03-05 07:09] LABS: CALCIUM, SERUM 8.2 mg/dL (8.5-10.1); CREATININE 0.9 mg/dL (0.6-1.3); PHOSPHORUS 3.2 mg/dL (2.5-4.9); POTASSIUM 3.9 mmol/L (3.5-5.1)
--- NOTE | 2021-03-05 07:10 | NUR ---
RN OPENING NOTE Received patient in bed. a/o x4. on room air, no sob noted. in no apparent distress. iv access on left hand #22 g, NS running at 75 ml/hr, intact and patent. Patient has a R arm dvt, kept arm elevated. Safety measures maintained. Bed in lowest position, brakes locked. side rails up x2. Call light within reach. Will continue plan of care.
[2021-03-05 08:00] VITALS: BP 124/68
[2021-03-05] MEDS: LISINOPRIL (20MG) 20 MG TABLET PO SCH (08:36)
[2021-03-05] MEDS: AMLODIPINE BESYLATE 10 MG TABLET PO SCH (08:36)
[2021-03-05] MEDS: GABAPENTIN 300 MG CAPSULE PO SCH ×3 (08:36→16:01)
[2021-03-05] MEDS: ENOXAPARIN SODIUM 100 MG/ML DISP.SYRIN SQ SCH ×2 (08:38→20:40)
--- NOTE | 2021-03-05 12:21 | NUR ---
RN NOTE TEMP OF 100.6, TYLENOL 650 MG TABS PO GIVEN. WILL CONTINUE TO MONITOR.
--- NOTE | 2021-03-05 13:22 | NUR ---
RN NOTE RECHECKED TEMP 97.9
[2021-03-05 16:00] VITALS: BP 125/68
--- NOTE | 2021-03-05 18:00 | NUR ---
RN CLOSING NOTE Patient resting in bed. a/o x4. Ambulatory. On room air, no sob noted. No s/s of respiratory distress. IV access on left hand #22 g, NS running at 75 ml/hr, intact and patent. Patient has a R arm dvt, kept arm elevated. Pt has abdominal drainage access, draining serosanguineous, 20 cc output. All due meds given as ordered. All needs have been met and attended. Safety measures maintained. Bed in lowest position, brakes locked. side rails up x2. Call light within reach. Will endorse continuity of care to oncoming shift.
--- NOTE | 2021-03-05 19:16 | NUR ---
MS RN NOTES Received patient in bed. a/o x4. on room air, no sob noted. in no apparent distress. iv access on left hand #22 g, NS running at 75 ml/hr, intact and patent. Patient has a R arm dvt, kept arm elevated. Safety measures maintained. Bed in lowest position, brakes locked. side rails up x2. PT HAVING PAIN AT THIS TIME DILAUDID GIVEN BY DAY SHIFT NURSE PT ALSO HAVING A FEVER 100.8 F TYLENOL GIVEN BY AY SHIFT NURSE.WILL CONTINUE TO MONITOR.Call light within reach. Will continue plan of care.
[2021-03-05 20:00] VITALS: BP 123/79
[2021-03-05] MEDS: CYCLOBENZAPRINE 10 MG TABLET PO SCH (21:10)
[2021-03-06] MEDS: VANCOMYCIN HCL 1.25 GM in IV D5W 250 ML IV SCH ×2 (00:05→17:05)
[2021-03-06] MEDS: MEROPENEM 1 G in IV NS 0.9% 100 ML IV SCH ×3 (01:26→23:48)
[2021-03-06] MEDS: HYDROMORPHONE 1 MG/1 ML DISP.SYRIN IV PRN ×4 (01:44→22:38)
[2021-03-06 06:12] LABS: BASOPHILS % (AUTO) 0.3 % (0.0-2.0); EOSINOPHILS % (AUTO) 1.5 % (0.0-6.0); HEMATOCRIT 38 % (39-51); HEMOGLOBIN 12.7 g/dL (13.5-17.5); LYMPHOCYTES % (AUTO) 14.2 % (20.0-44.0); MEAN CORPUSCULAR HGB CONC 34 g/dl (31.0-36.0); MEAN CORPUSCULAR VOLUME 85 fL (80-96); MONOCYTES # (AUTO) 0.9 K/uL (0.1-1.30); MONOCYTES % (AUTO) 12.8 % (2.0-12.0); NEUTROPHILS # (AUTO) 5.2 K/uL (1.8-8.9); NEUTROPHILS % (AUTO) 71.2 % (43.0-81.0); PLATELET COUNT (AUTO) 413 K/uL (150-450); RED BLOOD CELL COUNT(AUTO) 4.42 MIL/uL (4.5-6.0); WHITE BLOOD COUNT (AUTO) 7.3 K/uL (4.3-11.0)
[2021-03-06] MEDS: IV NS 0.9% 1,000 ML IV PRN (06:14)
--- NOTE | 2021-03-06 06:37 | NUR ---
MS RN NOTES Received patient in bed. a/o x4. on room air, no sob noted. in no apparent distress. iv access on left hand #22 g, NS running at 75 ml/hr, intact and patent. Patient has a R arm dvt, kept arm elevated. Safety measures maintained. Bed in lowest position, brakes locked. side rails up x2. no fever at this time. all due meds giiven and tolerated well. pig tail with 10cc of output. will continue to monitor.
[2021-03-06 06:57] LABS: ALBUMIN 2.2 g/dL (3.4-5.0); BILIRUBIN,TOTAL 0.4 mg/dL (0.2-1.0); CALCIUM, SERUM 8.2 mg/dL (8.5-10.1); CREATININE 0.8 mg/dL (0.6-1.3); PHOSPHORUS 2.7 mg/dL (2.5-4.9); POTASSIUM 3.8 mmol/L (3.5-5.1); TOTAL PROTEIN, SERUM 6.4 g/dL (6.4-8.2)
[2021-03-06 08:00] VITALS: BP 135/76
--- NOTE | 2021-03-06 08:00 | NUR ---
Received patient in bed. a/o x4. on room air, no sob noted. in no apparent distress. iv access on left hand #22 g, NS running at 75 ml/hr, intact and patent. Patient has a R arm dvt, kept arm elevated. Safety measures maintained. Bed in lowest position, brakes locked. side rails up x2. no fever at this time. all due meds giiven and tolerated well. will continue to monitor.
[2021-03-06] MEDS: ENOXAPARIN SODIUM 100 MG/ML DISP.SYRIN SQ SCH ×2 (08:59→21:48)
[2021-03-06] MEDS: AMLODIPINE BESYLATE 10 MG TABLET PO SCH (09:01)
[2021-03-06] MEDS: GABAPENTIN 300 MG CAPSULE PO SCH ×3 (09:01→17:47)
[2021-03-06] MEDS: LISINOPRIL (20MG) 20 MG TABLET PO SCH (09:01)
[2021-03-06] MEDS: KETOROLAC TROMETHAMINE INJ 30 MG/ML VIAL IM SCH ×3 (13:16→23:33)
[2021-03-06] MEDS ORDERED: IV NS 0.9% 250 ML IV ONE (14:06)
[2021-03-06] MEDS ORDERED: CT SWABBABLE VALVE TRANS SET 1 EA INFUS.SET MC ONE (14:06)
[2021-03-06] MEDS ORDERED: IOHEXOL-300 100 ML VIAL IV ONE (14:06)
[2021-03-06 16:00] VITALS: BP 123/73
--- NOTE | 2021-03-06 18:10 | NUR ---
Patient resting in bed. a/o x4. Ambulatory. On room air, no sob noted. No s/s of respiratory distress. IV access on left hand #22 g, NS running at 75 ml/hr, intact and patent. Patient has a R arm dvt, kept arm elevated. Pt has abdominal drainage access, draining serosanguineous, 30 cc output. All due meds given as ordered. All needs have been met and attended. Safety measures maintained. Bed in lowest position, brakes locked. side rails up x2. Call light within reach. Will endorse continuity of care to oncoming shift.
--- NOTE | 2021-03-06 19:45 | NUR ---
RECEIVED PATIENT IN BED, ASLEEP, AROUSABLE TO PAINFUL STIMULI, WHEN TOUCHED OPEN HIS EYES ONLY NON VERBAL, WHEN CALL HIS NAME, ANSWERS "YEAH' ONLY AND GOES BACK TO SLEEP, SNORING LOUD, VERY LETHARGIC WHEN WOKE UP. PLACED ON O2 AT 3L/MIN NASAL CANNULA. NO S/S OF DISTRESS NOTED. HOB ELEVATED.CHARGE NURSE MADE AWARE, AND RECOMMENDED STAT ABG. RT CAME.
[2021-03-06 20:00] VITALS: BP 129/75
[2021-03-06 20:30] LABS: ABG BASE EXCESS 3.7 mmol/L; ABG OXYGEN SATURATION 97.6 % (92.0-98.5); ABG PCO2 37.3 mmHg (35.0-45.0); ABG PH 7.481 (7.350-7.450); ABG PO2 90.4 mmHg (75.0-100.0); AaDO2 94.1 mmHg; COHb 0.9 % (0.5-1.5); MetHb 0.2 % (0.0-1.5); O2Hb 96.5 % (94.0-97.0); SITE, ABG Right Radial; VENT MODE, BG 3LPM N/C
--- NOTE | 2021-03-06 20:41 | NUR ---
ABG RESULTS SENT TO DR CHAUDHARY. AND INFORMED HIM OF THE CHANGED OF LEVEL OF CONSCIOUSNESS.
--- NOTE | 2021-03-06 20:42 | NUR ---
PATIENT IS EASILY AROUSABLE NOW AND ANSWERS WHEN CALL HIS NAME AND OPENS HIS EYES FULLY.
--- NOTE | 2021-03-06 21:37 | NUR ---
O2 SAT 100% ON O2 AT 3L/MIN NASAL CANNULA.
[2021-03-06] MEDS: CYCLOBENZAPRINE 10 MG TABLET PO SCH ×2 (21:49→22:30)
--- NOTE | 2021-03-06 22:16 | NUR ---
CHECKED PATIENT'S RESPONSIVENESS, PATIENT IS EASILY AROUSABLE AND MORE RESPONSIVE AND AWAKE WHEN WAKING HIM UP,ASKED IF HE CAN TAKE HIS PILL AND HE ANSWERED YES.
--- NOTE | 2021-03-06 22:23 | NUR ---
PATIENT IS STILL SLEEPING, EASILY AROUSABLE TO VERBAL AND TACTILE STIMULI, ASKED PATIENT IF HE WANTS TO TAKE THE FLEXERIL,PATIENT RESPONDED WITH ANGRY TONE OF VOICE " YES! DO YOU WANT ME TO STAY UP ALL NIGHT? I'LL TAKE IT!.
--- NOTE | 2021-03-06 22:31 | NUR ---
PATIENT IS FULLY AWAKE NOW AND TALKING TO THE SON ON THE PHONE. PATIENT VOIDED IN THE URINAL. ASKING FOR PAIN MED.
--- NOTE | 2021-03-06 22:46 | NUR ---
ASKED THE PATIENT IF IT'S OKAY TO SHARE INFORMATIONS TO HIS SISTER YEISON FROM [place], PATIENT REPLIED OKAY.
--- NOTE | 2021-03-06 22:56 | NUR ---
PATIENT IS AWAKE A/O X4 AND TALKING TO THE PHONE AT THIS MOMENT.
[2021-03-07] MEDS: ZOLPIDEM TARTRATE 5 MG TABLET PO PRN (01:07)
[2021-03-07] MEDS: IV NS 0.9% 1,000 ML IV PRN (01:08)
[2021-03-07] MEDS: HYDROMORPHONE 1 MG/1 ML DISP.SYRIN IV PRN ×4 (05:02→18:35)
[2021-03-07] MEDS: VANCOMYCIN HCL 1.25 GM in IV D5W 250 ML IV SCH ×2 (05:02→18:15)
--- NOTE | 2021-03-07 05:31 | NUR ---
MS RN CLOSING NOTES: PATIENT IN BED, ASLEEP, EASILY AROUSABLE. NO S/S OF DISTRESS NOTED. CALL LIGHT WITHIN REACH. BED ALARM ON. BED IN LOWEST AND LOCKED POSITION. WITH PIGTAIL DRAIN INTACT WITH SMALL AMOUNT OF SANGUINOUS OUTPUT. RIGHT ARM SWOLLEN ELEVATED WITH PILLOWS AT ALL TIMES. URINAL AT THE BEDSIDE. RESTED THROUGHOUT THE NIGHT. WITH SCD'S ON BOTH LEGS.
[2021-03-07] MEDS: KETOROLAC TROMETHAMINE INJ 30 MG/ML VIAL IM SCH ×2 (06:00→12:01)
[2021-03-07 06:37] LABS: BASOPHILS % (AUTO) 0.3 % (0.0-2.0); EOSINOPHILS % (AUTO) 1.6 % (0.0-6.0); HEMATOCRIT 36 % (39-51); HEMOGLOBIN 12.2 g/dL (13.5-17.5); LYMPHOCYTES # (AUTO) 0.9 K/uL (0.8-4.8); LYMPHOCYTES % (AUTO) 11.4 % (20.0-44.0); MEAN CORPUSCULAR HGB CONC 34 g/dl (31.0-36.0); MEAN CORPUSCULAR VOLUME 85 fL (80-96); MONOCYTES # (AUTO) 0.8 K/uL (0.1-1.30); MONOCYTES % (AUTO) 9.8 % (2.0-12.0); NEUTROPHILS # (AUTO) 6.2 K/uL (1.8-8.9); NEUTROPHILS % (AUTO) 76.9 % (43.0-81.0); PLATELET COUNT (AUTO) 510 K/uL (150-450); RED BLOOD CELL COUNT(AUTO) 4.26 MIL/uL (4.5-6.0)
[2021-03-07 06:48] LABS: ALBUMIN 2.1 g/dL (3.4-5.0); BILIRUBIN,TOTAL 0.6 mg/dL (0.2-1.0); CALCIUM, SERUM 8.1 mg/dL (8.5-10.1); CREATININE 0.9 mg/dL (0.6-1.3); PHOSPHORUS 3.1 mg/dL (2.5-4.9); POTASSIUM 4.3 mmol/L (3.5-5.1); TOTAL PROTEIN, SERUM 6.2 g/dL (6.4-8.2)
[2021-03-07 08:00] VITALS: BP 126/74
[2021-03-07] MEDS: SIMETHICONE 80 MG TAB.CHEW PO PRN (08:29)
[2021-03-07] MEDS: GABAPENTIN 300 MG CAPSULE PO SCH ×3 (08:29→16:34)
[2021-03-07] MEDS: ENOXAPARIN SODIUM 100 MG/ML DISP.SYRIN SQ SCH (08:31)
[2021-03-07] MEDS: AMLODIPINE BESYLATE 10 MG TABLET PO SCH (08:38)
[2021-03-07] MEDS: LISINOPRIL (20MG) 20 MG TABLET PO SCH (08:40)
--- NOTE | 2021-03-07 09:30 | NUR ---
Opening Notes: Received pt. awake in bed, with oxygen via nasal cannula, with on going IV NS @ 75 ml/hr and pt. is with a drainage. Pt. is complaining on pain on hi right arm. Prt. ate breakfast, compliant on meds and prn for pain given. Needs attended and will continue to monitor for safety.
[2021-03-07] MEDS: MEROPENEM 1 G in IV NS 0.9% 100 ML IV SCH ×2 (10:41→19:52)
[2021-03-07] MEDS: ACETAMINOPHEN 325 MG TABLET PO PRN ×2 (11:51→18:50)
[2021-03-07] MEDS: METRONIDAZOLE 500 MG TABLET PO SCH ×2 (12:37→22:02)
--- NOTE | 2021-03-07 14:24 | NUR ---
Isidra Duque EDUCATION PROGRAM COORDINATOR came and discontinued the pigtail drainage.
[2021-03-07 16:00] VITALS: BP 144/97
[2021-03-07] MEDS ORDERED: KETOROLAC TROMETHAMINE INJ 30 MG/ML VIAL IM PRN (16:19)
--- NOTE | 2021-03-07 19:05 | NUR ---
Pt. is awake in bed. Temp is 100.0 and Tylenol prn given and Dilaudid prn given. Pt. is still with oxygen aT 3L/min and with ongoing IV of NS at 75ml/hr. Will endorse to the incoming nurse.
--- NOTE | 2021-03-07 21:54 | NUR ---
MS/TELE/RN TEMP 103.0, COOLING MEASURES IN PROGRESS, DR. CHAUDHARY NOTIFIED, NO NEW ORDERS RECEIVED. WILL MONITOR PATIENT.
[2021-03-07] MEDS: APIXABAN 5 MG TABLET PO SCH (22:02)
--- NOTE | 2021-03-07 23:30 | NUR ---
MS/TELE/RN TEMP 100.8, WILL CONTINUE COOLING MEASURES.
--- NOTE | 2021-03-08 00:59 | NUR ---
MS/TELE/RN PATIENT IS SLEEPING, APPEAR COMFORTABLE, NO SIGNS OF DISTRESS NOTED, CALL LIGHT IN REACH, WILL CONTINUE TO MONITOR.
[2021-03-08] MEDS: MEROPENEM 1 G in IV NS 0.9% 100 ML IV SCH ×3 (02:03→18:08)
[2021-03-08] MEDS: HYDROMORPHONE 1 MG/1 ML DISP.SYRIN IV PRN ×4 (03:50→22:25)
[2021-03-08] MEDS: VANCOMYCIN HCL 1.25 GM in IV D5W 250 ML IV SCH ×2 (05:06→18:53)
[2021-03-08] MEDS: METRONIDAZOLE 500 MG TABLET PO SCH ×3 (05:08→21:15)
--- NOTE | 2021-03-08 06:12 | NUR ---
MS/TELE/RN PATIENT IS STILL SLEEPING AT THIS THIS TIME, APPEAR COMFORTABLE, NO SIGNS OF DISTRESS NOTED, CALL LIGHT IN REACH, ALL NEEDS ATTENDED AT THIS TIME, WILL CONTINUE TO MONITOR.
[2021-03-08 06:27] LABS: BASOPHILS % (AUTO) 0.4 % (0.0-2.0); EOSINOPHILS % (AUTO) 0.2 % (0.0-6.0); HEMATOCRIT 36 % (39-51); HEMOGLOBIN 12.3 g/dL (13.5-17.5); LYMPHOCYTES # (AUTO) 0.6 K/uL (0.8-4.8); MEAN CORPUSCULAR HGB CONC 34 g/dl (31.0-36.0); MEAN CORPUSCULAR VOLUME 84 fL (80-96); MONOCYTES # (AUTO) 0.6 K/uL (0.1-1.30); MONOCYTES % (AUTO) 7.8 % (2.0-12.0); NEUTROPHILS # (AUTO) 6.6 K/uL (1.8-8.9); NEUTROPHILS % (AUTO) 83.6 % (43.0-81.0); PLATELET COUNT (AUTO) 721 K/uL (150-450); RED BLOOD CELL COUNT(AUTO) 4.28 MIL/uL (4.5-6.0); WHITE BLOOD COUNT (AUTO) 7.9 K/uL (4.3-11.0)
[2021-03-08 06:57] LABS: ALBUMIN 2.3 g/dL (3.4-5.0); BILIRUBIN,TOTAL 0.4 mg/dL (0.2-1.0); CALCIUM, SERUM 8.2 mg/dL (8.5-10.1); CREATININE 0.9 mg/dL (0.6-1.3); PHOSPHORUS 2.9 mg/dL (2.5-4.9); POTASSIUM 4.3 mmol/L (3.5-5.1); TOTAL PROTEIN, SERUM 6.5 g/dL (6.4-8.2)
--- NOTE | 2021-03-08 07:15 | NUR ---
MS RN OPENING NOTE PT ASLEEP ON BED BUT WAKES UP TO CALL, A/O X4, ABLE TO VERBALIZE ALL NEEDS. PATIENT DENIES PAIN OR DISCOMFORT AT THIS TIME. IV ACCESS ON LEFT HAND G22, PATENT AND INTACT. REFUSED TO HAVE DRESSING CHECK AT THIS TIME, WANTS TO SLEEP. SAFETY MEASURES IN PLACE, BED IN LOWEST LOCKED AND AT LOWEST POSITION, SIDE RAILS UP X2, CALL LIGHT AND TABLE WITHIN REACH. WILL CONTINUE TO MONITOR PATIENT
[2021-03-08] MEDS: APIXABAN 5 MG TABLET PO SCH ×2 (09:36→17:55)
[2021-03-08 09:38] VITALS: BP 131/58
[2021-03-08] MEDS: GABAPENTIN 300 MG CAPSULE PO SCH ×3 (09:47→17:39)
[2021-03-08] MEDS: AMLODIPINE BESYLATE 10 MG TABLET PO SCH (09:48)
[2021-03-08] MEDS: LISINOPRIL (20MG) 20 MG TABLET PO SCH (09:48)
--- NOTE | 2021-03-08 12:56 | NUR ---
MS RN NOTE RESIDENT SEEN BY DR. HEATH WITH NO NEW ORDER AT THIS TIME.
[2021-03-08] MEDS: HYDROCODONE/APAP 5/325MG TABLET PO PRN ×2 (15:50→21:14)
[2021-03-08 16:15] VITALS: BP 120/70
--- NOTE | 2021-03-08 19:00 | NUR ---
MS RN CLOSING NOTE PT ON BED A/O X4, ABLE TO VERBALIZE ALL NEEDS. PATIENT DENIES PAIN OR DISCOMFORT AT THIS TIME. IV ACCESS ON LEFT HAND G22, PATENT AND INTACT. REFUSED TO HAVE DRESSING CHECK AT THIS TIME, WANTS TO SLEEP. SAFETY MEASURES IN PLACE, BED IN LOWEST LOCKED AND AT LOWEST POSITION, SIDE RAILS UP X2, CALL LIGHT AND TABLE WITHIN REACH. WILL ENDORSE TO NEXT SHIFT FOR CONTINUITY OF CARE.
[2021-03-08 20:00] VITALS: BP 124/79
--- NOTE | 2021-03-08 20:48 | NUR ---
MS RN OPENING NOTE PATIENT A/OX4; IN BED AND ABLE TO MAKE NEEDS KNOWN. TOLERATING ROOM AIR WELL WITH NO SOB. DENIES PAIN OR DISCOMFORT AT THIS TIME. L HAND #22 S/L; PATENT AND INTACT. SAFETY MEASURES IN PLACE: BED IN LOWEST LOCKED POSITION, SIDE RAILS UPX2, CALL LIGHT WITHIN EASY REACH, BED ALARMS ON. PATIENT IN STABLE CONDITION; WILL CONT. PLAN OF CARE.
[2021-03-08] MEDS: CYCLOBENZAPRINE 10 MG TABLET PO SCH (21:14)
--- NOTE | 2021-03-08 21:14 | NUR ---
MS RN NOTE - PAIN PT C/O 02/02 R ARM PAIN. ADMINISTERED NORCO ORDERED. WILL CONTINUE TO REASSESS IN 30 MINUTES.
[2021-03-08] MEDS ORDERED: CEFTRIAXONE 1 G VIAL ONE (22:35)
[2021-03-08] MEDS: CEFTRIAXONE 1 G in IV D5W 50 ML IV SCH (22:38)
--- NOTE | 2021-03-08 22:55 | NUR ---
MS RN NOTE - PAIN PT C/O 04/05 R ARM PAIN. ADMINISTERED DILAUDID ORDERED. WILL CONTINUE TO REASSESS IN 30 MINUTES.
[2021-03-09] MEDS: HYDROMORPHONE 1 MG/1 ML DISP.SYRIN IV PRN ×4 (03:59→22:47)
--- NOTE | 2021-03-09 03:59 | NUR ---
MS RN NOTE - PAIN PT C/O 04/05 R ARM PAIN. ADMINISTERED DILAUDID ORDERED. WILL CONTINUE TO REASSESS IN 30 MINUTES.
[2021-03-09] MEDS: VANCOMYCIN HCL 1.25 GM in IV D5W 250 ML IV SCH ×2 (04:00→17:29)
[2021-03-09] MEDS: METRONIDAZOLE 500 MG TABLET PO SCH ×3 (04:00→20:04)
--- NOTE | 2021-03-09 06:09 | NUR ---
MS RN CLOSING NOTE PATIENT A/OX4; IN BED AND ABLE TO MAKE NEEDS KNOWN. TOLERATING ROOM AIR WELL WITH NO SOB. DENIES PAIN OR DISCOMFORT AT THIS TIME. LFA #20G S/L; PATENT AND INTACT. SAFETY MEASURES IN PLACE: BED IN LOWEST LOCKED POSITION, SIDE RAILS UPX2, CALL LIGHT WITHIN EASY REACH, BED ALARMS ON. PATIENT IN STABLE CONDITION; ENDORSE CONT. PLAN OF CARE TO ONCOMING MORNING RN.
[2021-03-09 06:53] LABS: BASOPHILS # (AUTO) 0.1 K/uL (0.0-0.2); BASOPHILS % (AUTO) 0.8 % (0.0-2.0); EOSINOPHILS % (AUTO) 2.4 % (0.0-6.0); HEMATOCRIT 37 % (39-51); HEMOGLOBIN 12.3 g/dL (13.5-17.5); LYMPHOCYTES # (AUTO) 1.2 K/uL (0.8-4.8); LYMPHOCYTES % (AUTO) 14.2 % (20.0-44.0); MEAN CORPUSCULAR HGB CONC 34 g/dl (31.0-36.0); MEAN CORPUSCULAR VOLUME 84 fL (80-96); MONOCYTES # (AUTO) 1.1 K/uL (0.1-1.30); MONOCYTES % (AUTO) 13.1 % (2.0-12.0); NEUTROPHILS # (AUTO) 5.7 K/uL (1.8-8.9); NEUTROPHILS % (AUTO) 69.5 % (43.0-81.0); PLATELET COUNT (AUTO) 818 K/uL (150-450); RED BLOOD CELL COUNT(AUTO) 4.34 MIL/uL (4.5-6.0); WHITE BLOOD COUNT (AUTO) 8.1 K/uL (4.3-11.0)
--- NOTE | 2021-03-09 07:12 | NUR ---
MS RN OPENING NOTE PT ASLEEP ON BED BUT WAKES UP TO CALL, A/O X4, ABLE TO VERBALIZE ALL NEEDS. PATIENT DENIES PAIN OR DISCOMFORT AT THIS TIME. IV ACCESS ON LEFT ARM G20, PATENT AND INTACT. ABLE TO VERBALIZE NEEDS. SAFETY MEASURES IN PLACE, BED IN LOWEST LOCKED AND AT LOWEST POSITION, SIDE RAILS UP X2, CALL LIGHT AND TABLE WITHIN REACH. WILL CONTINUE TO MONITOR PATIENT
[2021-03-09 07:27] LABS: ALBUMIN 2.3 g/dL (3.4-5.0); BILIRUBIN,TOTAL 0.3 mg/dL (0.2-1.0); CALCIUM, SERUM 8.4 mg/dL (8.5-10.1); CREATININE 0.8 mg/dL (0.6-1.3); MAGNESIUM 2.4 mg/dL (1.8-2.4); POTASSIUM 4.2 mmol/L (3.5-5.1); TOTAL PROTEIN, SERUM 6.5 g/dL (6.4-8.2)
[2021-03-09 08:00] VITALS: BP 125/76
[2021-03-09] MEDS: GABAPENTIN 300 MG CAPSULE PO SCH ×3 (08:34→17:29)
[2021-03-09] MEDS: LISINOPRIL (20MG) 20 MG TABLET PO SCH (08:35)
[2021-03-09] MEDS: AMLODIPINE BESYLATE 10 MG TABLET PO SCH (08:35)
[2021-03-09] MEDS: APIXABAN 5 MG TABLET PO SCH ×2 (08:43→17:31)
[2021-03-09] MEDS: HYDROCODONE/APAP 5/325MG TABLET PO PRN (11:50)
[2021-03-09 16:00] VITALS: BP 117/69
--- NOTE | 2021-03-09 18:00 | NUR ---
MS RN NOTE RECEIVED A CALL FROM THAT PATIENT'S ROOM MATE TESTED POSITIVE FOR COVID AT THE FACILITY PATIENT. IS NOW UNDER INVESTIGATION AND COVID PROTOCOL ENFORCED. PATIENT TESTED FOR COVID THROUGH RAPID AND PCR TEST. WILL MONITOR PATIENT CLOSELY.
--- NOTE | 2021-03-09 19:00 | NUR ---
MS RN OPENING NOTE PT ASLEEP ON BED BUT WAKES UP TO CALL, A/O X4, ABLE TO VERBALIZE ALL NEEDS. PATIENT DENIES PAIN OR DISCOMFORT AT THIS TIME. IV ACCESS ON LEFT WRIST G22, PATENT AND INTACT. ABLE TO VERBALIZE NEEDS. MAINTAINED ON ISOLATION RELATED TO POSSIBLE COVID INFECTION. SAFETY MEASURES IN PLACE, BED IN LOWEST LOCKED AND AT LOWEST POSITION, SIDE RAILS UP X2, CALL LIGHT AND TABLE WITHIN REACH. WILL CONTINUE TO MONITOR PATIENT Addendum: 03/09/21 at 193 by RISHABH COLEMAN RN MS RN CLOSING NOTE Addendum: 03/09/21 at 193 by RISHABH COLEMAN RN ENDORSED FOR CONTINUITY OF CARE
[2021-03-09 20:00] VITALS: BP 123/72
[2021-03-09] MEDS: ACETAMINOPHEN 325 MG TABLET PO PRN (20:04)
--- NOTE | 2021-03-09 21:45 | NUR ---
TRANSFERRED PT TO ROOM 102. REPORT GIVEN TO HAKEEM STRICKLAND FOR EDUARDO.
--- NOTE | 2021-03-09 22:00 | NUR ---
ms rn notes received pts and report from rn krista rn [facility] , for continuity of care .pts on r//a sating 94%,v/s bp 117/73 hr 100 rr 20 temp 99. no sob no distress noted , all due meds given as ordered ,pts is ambulatory a/ox 4 , all needs attended too call light within reach ,pts on precautionary measures observed at all times with left wrist g#22 intact and patent no bp on rue d/t right ue dvt .kept pts clean dry and comfortable .will continue to monitor pts.
[2021-03-09] MEDS: CYCLOBENZAPRINE 10 MG TABLET PO SCH (22:45)
[2021-03-09] MEDS: CEFTRIAXONE 1 G in IV D5W 50 ML IV SCH ×2 (22:46→22:53)
[2021-03-10] VITALS: BP 117/73
[2021-03-10 04:00] VITALS: BP 134/78
[2021-03-10] MEDS: VANCOMYCIN HCL 1.25 GM in IV D5W 250 ML IV SCH (04:06)
[2021-03-10] MEDS: METRONIDAZOLE 500 MG TABLET PO SCH ×3 (04:07→21:04)
--- NOTE | 2021-03-10 05:59 | NUR ---
ms rn notes Pts remain in bed , on r//a sating 94%, no sob no distress noted , all due meds given as ordered ,pts is ambulatory a/ox 4 , all needs attended too call light within reach ,pts on precautionary measures observed at all times with left wrist g#22 intact and patent no bp on rue d/t right ue dvt .kept pts clean dry and comfortable .will continue to monitor pts.
--- NOTE | 2021-03-10 07:30 | NUR ---
MS RN AM NOTE PATIENT IN BED A/OX4; IN BED AND ABLE TO MAKE NEEDS KNOWN. TOLERATING ROOM AIR WELL WITH NO SOB. C/O RUE PAIN D/T DVT, WILL ADMINISTER PAIN MEDICATION ORDERED. L HAND #22G S/L; FLUSHES WELL, SITE CLEAR. MECHANICAL SOFT DIET. SAFETY MEASURES IN PLACE: BED IN LOWEST LOCKED POSITION, SIDE RAILS UPX2, CALL LIGHT WITHIN EASY REACH, BED ALARMS ON. ISOLATION PRECAUTION OBSERVED. WILL CONT TO MONITOR.
[2021-03-10] MEDS: HYDROMORPHONE 1 MG/1 ML DISP.SYRIN IV PRN ×3 (07:43→21:48)
[2021-03-10 08:00] VITALS: BP 128/72
[2021-03-10] MEDS: GABAPENTIN 300 MG CAPSULE PO SCH ×3 (08:53→16:21)
[2021-03-10] MEDS: APIXABAN 5 MG TABLET PO SCH ×2 (08:54→16:20)
[2021-03-10] MEDS: LISINOPRIL (20MG) 20 MG TABLET PO SCH (08:54)
[2021-03-10] MEDS: AMLODIPINE BESYLATE 10 MG TABLET PO SCH (08:54)
--- NOTE | 2021-03-10 09:30 | NUR ---
RN NOTES DUE MEDS GIVEN
[2021-03-10 09:36] LABS: CALCIUM, SERUM 8.8 mg/dL (8.5-10.1); CREATININE 0.8 mg/dL (0.6-1.3); POTASSIUM 4.7 mmol/L (3.5-5.1)
[2021-03-10] MEDS: HYDROCODONE/APAP 5/325MG TABLET PO PRN (12:02)
[2021-03-10 16:00] VITALS: BP 119/76
--- NOTE | 2021-03-10 18:35 | NUR ---
MS RN NOTES ALL NEEDS ATTENDED AND MET AT THIS TIME. NO OTHER SIGNIFICANT CHANGE, PT RESTING WELL, NOT IN ANY DISTRESS, NO SOB, PAIN MANAGEMENT PROVIDED. SAFETY MEASURES IN PLACE. BED LOW LOCKED, SR UP X , CALL LIGHT WITH IN REACH. WILL ENDORSE TO NEXT SHIFT FOR EDUARDO.
--- NOTE | 2021-03-10 19:30 | NUR ---
MS RN OPENING NOTE RECEIVED PT AWAKE IN BED. A/O X4. PT IS STABLE ON ROOM AIR. NO SOB OR S/S OF RESPIRATORY DISTRESS NOTED. PT DENIES PAIN OR DISCOMFORT AT THIS TIME. IV ACCESS IN LEFT HAND #22, INTACT AND PATENT. SAFETY PRECAUTIONS MAINTAINED. BED IN LOWEST LOCKED POSITION, HOB ELEVATED, SIDE RAILS UP X2. CALL LIGHT AND TABLE WITHIN REACH. WILL CONTINUE WITH PLAN OF CARE.
[2021-03-10 20:00] VITALS: BP 111/66
[2021-03-10] MEDS: CEFTRIAXONE 1 G in IV D5W 50 ML IV SCH (21:04)
[2021-03-10] MEDS: CYCLOBENZAPRINE 10 MG TABLET PO SCH (21:04)
[2021-03-11] MEDS: HYDROMORPHONE 1 MG/1 ML DISP.SYRIN IV PRN ×4 (03:17→16:08)
[2021-03-11 04:00] VITALS: BP 114/70
[2021-03-11] MEDS: METRONIDAZOLE 500 MG TABLET PO SCH ×2 (04:27→12:16)
--- NOTE | 2021-03-11 06:08 | NUR ---
MS RN CLOSING NOTE PT IS AWAKE IN BED. A/O X4. PT IS STABLE ON ROOM AIR. NO SOB OR S/S OF RESPIRATORY DISTRESS NOTED. PT DENIES PAIN OR DISCOMFORT AT THIS TIME. IV ACCESS IS INTACT, PATENT, AND FLUSHING WELL. ALL NEEDS HAVE BEEN MET. PAIN MANAGEMENT ADMINISTERED PER ORDER. SAFETY PRECAUTIONS MAINTAINED AT ALL TIMES. BED IN LOWEST LOCKED POSITION, HOB ELEVATED, SIDE RAILS UP X2. CALL LIGHT AND TABLE WITHIN REACH. WILL ENDORSE TO ONCOMING NURSE FOR EDUARDO.
--- NOTE | 2021-03-11 07:15 | NUR ---
MS RN NOTE PT C/O 9/10 R ARM PAIN ASKED FOR PRN PAIN MEDICATION, VITALS WNL ADMINISTERED PAIN MEDICATION ORDERED. WILL CONTINUE TO MONITOR.
--- NOTE | 2021-03-11 07:15 | NUR ---
MS RN OPENING NOTE RECEIVED PT AWAKE IN BED. A/O X4. PATIENT IS BREATHING EVENLY AND NONLABORED PT IS STABLE ON ROOM AIR. NO SOB OR S/S OF RESPIRATORY DISTRESS NOTED. PT IS COMPLAINING OF SEVERE PAIN 04/05, ASKING FOR PRN PAIN MEDICATION, VITALS WNL WILL ADMINISTER PRN PAIN MEDICATION ORDERED. IV ACCESS IN LEFT HAND #22, INTACT AND PATENT. SAFETY PRECAUTIONS MAINTAINED. BED IN LOWEST LOCKED POSITION, HOB ELEVATED, SIDE RAILS UP X2. CALL LIGHT AND TABLE WITHIN REACH. WILL CONTINUE TO MONITOR
[2021-03-11 07:31] LABS: CALCIUM, SERUM 8.4 mg/dL (8.5-10.1); CREATININE 0.8 mg/dL (0.6-1.3); POTASSIUM 4.3 mmol/L (3.5-5.1)
[2021-03-11 07:58] VITALS: BP 122/69
[2021-03-11] MEDS: APIXABAN 5 MG TABLET PO SCH ×2 (08:10→16:07)
[2021-03-11] MEDS: LISINOPRIL (20MG) 20 MG TABLET PO SCH (08:10)
[2021-03-11] MEDS: AMLODIPINE BESYLATE 10 MG TABLET PO SCH (08:10)
[2021-03-11] MEDS: GABAPENTIN 300 MG CAPSULE PO SCH ×3 (08:10→16:08)
[2021-03-11 12:07] VITALS: BP 148/80
--- NOTE | 2021-03-11 16:22 | NUR ---
RN NOTE GAVE REPORT TO NUBIA STRICKLAND @ [facility]
--- NOTE | 2021-03-11 17:53 | NUR ---
DECORATOR INSPECTOR NOTE RECEIVED DISCHARGE ORDER. PATIENT IS A/O X4. PATIENT IS BREATHING EVENLY AND NONLABORED ON ROOM AIR. PATIENT IS IN NO ACUTE SIGNS OF DISTRESS. PATIENT DOES NOT COMPLAIN OF PAIN AT THIS TIME. PATIENT WAS GIVEN DISCHARGE INSTRUCTIONS BOTH VERBALLY AND IN WRITTEN FORM. PATIENT VERBALIZED UNDERSTANDING ALSO REPORT WAS GIVEN TO RN CRM FUNCTIONAL ANALYST ABDULLAHI AT [facility]. IV ACCESS WAS KEPT INTACT AND PATENT, PER FACILITY TO CONTINUE IV ATB AT FACILITY. ID BAND WAS REMOVED. ALL BELONGINGS ACCOUNTED FOR. PATIENT LEFT FACILITY IN STABLE CONDITION VIA AMBULANCE 2 COMPUTER REPAIRER PRESENT.
== END 2021-03-11 16:05 | DRG 720 ==
LOC: ER 23:00 → OBSVTOIN 03-02 08:43 → TRANSITION 03-02 08:43 → TELE-TD 03-02 11:57 → MEDSG1 03-02 12:58 → MED 03-04 22:40 → MEDSG1 03-09 21:42
PROVIDERS: ADMIT Internal Medicine
PROC: 0W9F3ZZ Drainage of Abdominal Wall, Percutaneous Approach (ICD-10-PCS; principal; 2021-03-04)
DX: A41.89 Other specified sepsis (principal); K65.1 Peritoneal abscess; I82.621 Acute embolism and thrombosis of deep veins of right upper extremity; N17.9 Acute kidney failure, unspecified; K91.89 Other postprocedural complications and disorders of digestive system; I10 Essential (primary) hypertension; L03.113 Cellulitis of right upper limb; Z20.822 Contact with and (suspected) exposure to COVID-19; K57.90 Diverticulosis of intestine, part unspecified, without perforation or abscess without bleeding; Z79.899 Other long term (current) drug therapy; Z98.890 Other specified postprocedural states; G89.29 Other chronic pain; G62.9 Polyneuropathy, unspecified; N20.0 Calculus of kidney; E86.1 Hypovolemia; Z68.33 Body mass index [BMI] 33.0-33.9, adult; E66.01 Morbid (severe) obesity due to excess calories; I82.611 Acute embolism and thrombosis of superficial veins of right upper extremity; I80.8 Phlebitis and thrombophlebitis of other sites; K52.9 Noninfective gastroenteritis and colitis, unspecified; K59.00 Constipation, unspecified; K43.6 Other and unspecified ventral hernia with obstruction, without gangrene
CPT/HCPCS: 36415; 36600; 71045-TC; 74018; 75989; 75989-TC; 80048-TC; 80053-TC; 80061-TC; 80076-TC; 80202-TC; 81001; 83605-TC; 83735-TC; 84100-TC; 84484-TC; 85025-TC; 85730-TC; 87040-TC; 87070-TC; 87081-TC; 87086-TC; 89051-TC; 93307-TC; 93970-TC; 93971-TC; C9803; G0378; J0696; J1170; J1650; J1885; J2185; J2270; J2543; J3370; J7030; J7050; J7060; Q9967; U0003

== ENCOUNTER 2021-03-15 23:10 | Inpatient (IN) | payer OTHER ==
[~2021-03-15] VITALS: Ht 177.8 cm; Wt 106.1 kg
--- NOTE | 2021-03-15 23:25 | NUR ---
PATIENT MOIRA FROM [facility], [place] FOR COUGH AND HIGH BLOOD PRESSURE NOTED AT 180'S REPORTED. BP STABLE UPON TRAIGE. PATIENT IS A/O X 4, RR EVEN AND UNLABORED, NO SIGNS OF SOB NOTED. PATIENT CONNECTED CARDAIC AND POX.
[2021-03-16 00:07] LABS: MEAN CORPUSCULAR HGB CONC 33 g/dl (31.0-36.0); MONOCYTES # (AUTO) 0.6 K/uL (0.1-1.30)
[2021-03-16 00:11] LABS: BASOPHILS # (AUTO) 0.1 K/uL (0.0-0.2); BASOPHILS % (AUTO) 0.8 % (0.0-2.0); EOSINOPHILS % (AUTO) 1.3 % (0.0-6.0); HEMATOCRIT 38 % (39-51); HEMOGLOBIN 12.8 g/dL (13.5-17.5); LYMPHOCYTES # (AUTO) 2.1 K/uL (0.8-4.8); LYMPHOCYTES % (AUTO) 24.4 % (20.0-44.0); MEAN CORPUSCULAR VOLUME 85 fL (80-96); MONOCYTES % (AUTO) 7.4 % (2.0-12.0); NEUTROPHILS # (AUTO) 5.6 K/uL (1.8-8.9); NEUTROPHILS % (AUTO) 66.1 % (43.0-81.0); RED BLOOD CELL COUNT(AUTO) 4.51 MIL/uL (4.5-6.0); WHITE BLOOD COUNT (AUTO) 8.5 K/uL (4.3-11.0)
[2021-03-16 00:16] LABS: CALCIUM, SERUM 8.9 mg/dL (8.5-10.1); POTASSIUM 3.8 mmol/L (3.5-5.1)
--- NOTE | 2021-03-16 00:16 | NUR ---
PLT [id number]
[2021-03-16 00:17] LABS: PLATELET COUNT (AUTO) 1044 K/uL (150-450)
[2021-03-16 00:21] LABS: ALBUMIN 3.1 g/dL (3.4-5.0); BILIRUBIN,DIRECT 0.1 mg/dL (0.0-0.2); BILIRUBIN,TOTAL 0.2 mg/dL (0.2-1.0); TOTAL PROTEIN, SERUM 7.4 g/dL (6.4-8.2)
[2021-03-16] MEDS ORDERED: CT SWABBABLE VALVE TRANS SET 1 EA INFUS.SET MC ONE (00:30)
[2021-03-16] MEDS ORDERED: IV NS 0.9% 250 ML IV ONE (00:30)
[2021-03-16] MEDS ORDERED: IOHEXOL-350 100 ML VIAL IV ONE (00:30)
--- NOTE | 2021-03-16 00:45 | NUR ---
PATIENT TAKEN TO CT
--- NOTE | 2021-03-16 01:01 | NUR ---
PATIENT RETURNED FROM CT
[2021-03-16] MEDS ORDERED: PIPERACILLIN /TAZOBACTAM 3.375 G in IV D5W 50 ML IV ONE (01:30)
--- NOTE | 2021-03-16 01:44 | NUR ---
DR CHRISTINE PAGED
[2021-03-16] MEDS ORDERED: PIPERACILLIN /TAZOBACTAM 3.375 G VIAL IV ONE (01:52)
[2021-03-16] MEDS ORDERED: MAG HYDROX/AL HYDROX/SIMETH 30 ML UDC PO PRN (02:00)
[2021-03-16] MEDS ORDERED: ZOLPIDEM TARTRATE 5 MG TABLET PO PRN (02:00)
[2021-03-16] MEDS ORDERED: IV D5/0.45 NACL 1,000 ML IV PRN (02:00)
[2021-03-16] MEDS ORDERED: ONDANSETRON HCL/PF 4 MG/2 ML VIAL IVP PRN (02:00)
[2021-03-16] MEDS ORDERED: Z GUARD REMEDY 2 OZ OINT TP PRN (02:00)
[2021-03-16] MEDS ORDERED: MAGNESIUM HYDROXIDE 30 ML UDC PO PRN (02:00)
[2021-03-16] MEDS ORDERED: ACETAMINOPHEN 325 MG TABLET PO PRN (02:00)
[2021-03-16] MEDS ORDERED: HYDROCODONE/APAP 5/325MG TABLET PO PRN (02:00)
--- NOTE | 2021-03-16 02:24 | NUR ---
COVID SWAB COLLECTED AND SENT TO LAB
[2021-03-16] MEDS ORDERED: MORPHINE SULFATE INJ 2 MG/ML DISP.SYRIN ONE ×2 (06:40→10:51)
[2021-03-16] MEDS: MORPHINE SULFATE INJ 2 MG/ML DISP.SYRIN IV PRN ×3 (06:47→17:25)
[2021-03-16] MEDS ORDERED: PIPERACILLIN /TAZOBACTAM 3.375 G in IV D5W 100 ML IV SCH (08:00)
[2021-03-16] MEDS ORDERED: PANTOPRAZOLE 40 MG VIAL ONE (08:15)
[2021-03-16] MEDS ORDERED: ACET325T53 PO (08:16)
[2021-03-16] MEDS ORDERED: SIME80TA15 PO (08:16)
[2021-03-16] MEDS ORDERED: APIX5TAB PO (08:16)
[2021-03-16] MEDS ORDERED: ZOLP5TAB2 PO (08:16)
[2021-03-16] MEDS: PANTOPRAZOLE 40 MG VIAL IV SCH (08:19)
[2021-03-16] MEDS: PIPERACILLIN /TAZOBACTAM 3.375 G in IV D5W 50 ML IV SCH ×2 (08:38→17:26)
--- NOTE | 2021-03-16 17:00 | NUR ---
report given to Silvana Mcgowan for eduardo
--- NOTE | 2021-03-16 17:13 | NUR ---
RN NOTES PATIENT TRANSFERRED TO UNIT AT ROOM 321-2 VIA [facility], ACCOMPANIED BY 1 ER NURSE.
[2021-03-16 18:00] VITALS: BP 146/74
--- NOTE | 2021-03-16 18:01 | NUR ---
RN NOTES PHOTO OF SKIN ISSUE TAKEN AND PLACED IN CHART.
--- NOTE | 2021-03-16 18:43 | NUR ---
MS RN CLOSING NOTES PT IN BED AWAKE, WATCHING TV. BREATHING IS EVEN AND UNLABORED. NO SOB NOTED. NO S/SX OF RESPIRATORY DISTRESS NOTED. IV ACCESS IN L AC #20 WITH D5 1/2 NS RUNNING AT 75 ML/HR. ALL NEEDS MET. PT KEPT CLEAN AND DRY. SAFETY MEASURES IN PLACE: BED IN LOWEST, LOCKED POSITION, BRAKES ON, SIDERAILS UP x2. WILL ENDORSE TO ONCOMING SHIFT.
--- NOTE | 2021-03-16 19:20 | NUR ---
RN OPENING NOTES RECEIVED PT RESTING IN BED, A/O X4, ABLE TO VERBALIZE NEEDS. NO C/O PAIN OR DISCOMFORT AT THIS TIME. RESPIRATIONS EVEN AND UNLABORED, ON ROOM AIR. IV ACCESS ON L-AC #20 INTACT AND PATENT. PT AMBULATES TO BR WITH STEADY GAIT. NO ACUTE DISTRESS NOTED. SAFETY MEASURES IN PLACE, BED IN LOWEST LOCKED POSITION, S/R UP X2, CALL LIGHT WITHIN REACH.
[2021-03-16 20:00] VITALS: BP 132/85
[2021-03-16] MEDS: APIXABAN 5 MG TABLET PO SCH (21:12)
[2021-03-16] MEDS: ASPIRIN EC 81 MG TABLET.DR PO SCH (21:12)
[2021-03-17] MEDS: PIPERACILLIN /TAZOBACTAM 3.375 G in IV D5W 50 ML IV SCH (00:42)
[2021-03-17] MEDS: HYDROMORPHONE 1 MG/1 ML DISP.SYRIN IV PRN ×6 (00:48→22:48)
[2021-03-17 06:33] LABS: BASOPHILS % (AUTO) 0.7 % (0.0-2.0); EOSINOPHILS % (AUTO) 2.4 % (0.0-6.0); HEMATOCRIT 37 % (39-51); HEMOGLOBIN 12.1 g/dL (13.5-17.5); LYMPHOCYTES # (AUTO) 1.6 K/uL (0.8-4.8); LYMPHOCYTES % (AUTO) 26.9 % (20.0-44.0); MEAN CORPUSCULAR HGB CONC 33 g/dl (31.0-36.0); MEAN CORPUSCULAR VOLUME 85 fL (80-96); MONOCYTES # (AUTO) 0.6 K/uL (0.1-1.30); MONOCYTES % (AUTO) 9.3 % (2.0-12.0); NEUTROPHILS # (AUTO) 3.6 K/uL (1.8-8.9); NEUTROPHILS % (AUTO) 60.7 % (43.0-81.0); PLATELET COUNT (AUTO) 825 K/uL (150-450); RED BLOOD CELL COUNT(AUTO) 4.31 MIL/uL (4.5-6.0)
--- NOTE | 2021-03-17 07:00 | NUR ---
RN CLOSING NOTES PT RESTING IN BED, EASILY AWAKENS TO STIMULI, NO C/O PAIN OR DISCOMFORT AT THIS TIME. ON ROOM AIR AND TOLERATING WELL. DENIES SOB. PT IS AMBULATORY WITH STEADY GAIT. SLEPT WELL DURING THE NIGHT. NO ACUTE DISTRESS NOTED. ALL NEEDS ATTENDED TO. ENDORSED TO NEXT SHIFT NURSE.
--- NOTE | 2021-03-17 07:25 | NUR ---
RN OPENING NOTES - PT RESTING IN BED, EASILY AWAKENED. CALM COOPERATIVE. A/O X4, ABLE TO VERBALIZE NEEDS. DENIES PAIN AT THIS TIME. RESPIRATIONS EVEN AND UNLABORED, ON ROOM AIR. IV ACCESS ON L-AC #20 INTACT. PT AMBULATES TO BR WITH STEADY GAIT. NO ACUTE DISTRESS NOTED. SAFETY MEASURES IN PLACE, BED IN LOWEST LOCKED POSITION, S/R UP X2, CALL LIGHT WITHIN REACH. ASSIST NEEDED.
[2021-03-17 08:00] VITALS: BP 124/76
[2021-03-17] MEDS ORDERED: PIPERACILLIN /TAZOBACTAM 3.375 G in IV D5W 100 ML IV SCH ×2 (08:03→08:30)
[2021-03-17 08:09] LABS: CALCIUM, SERUM 8.7 mg/dL (8.5-10.1); CREATININE 0.8 mg/dL (0.6-1.3); MAGNESIUM 2.2 mg/dL (1.8-2.4); PHOSPHORUS 4.3 mg/dL (2.5-4.9); POTASSIUM 4.1 mmol/L (3.5-5.1)
[2021-03-17] MEDS: PANTOPRAZOLE 40 MG VIAL IV SCH (08:26)
[2021-03-17] MEDS: APIXABAN 5 MG TABLET PO SCH (08:27)
[2021-03-17] MEDS: ASPIRIN EC 81 MG TABLET.DR PO SCH (08:28)
--- NOTE | 2021-03-17 10:00 | NUR ---
RN NOTE- PT FATHER CALLED [phone], STATED HE LOST A SON RECENTLY TO MEDICAL CONDITION AND IS HIGHLY CONCERNED REGARDING THIS PTS CURRENT MEDICAL CONDITION. SPOKE W FATHER, EXPLAINED CURRENT PLAN OF CARE. WILL RELATE CONCERNS TO MAMI KAMARA. PER RADIOLOGY, PT NEEDS TO BE OFF ELIQUIS FOR 48 HR BEFORE THEY'LL DO IR SEROMA ASPIRATION. TELECOM FIELD TECHNICIAN NOTIFIED. WILL GET STAT PT/PTT AND HOLD ELIQUIS NEXT TWO DAYS.
[2021-03-17 16:00] VITALS: BP 124/77
--- NOTE | 2021-03-17 17:22 | NUR ---
RN NOTE- CHILDREN'S ENTERTAINER ASAD NOTIFIED ABOUT POSSIBLE SEROMA ASPIRATION AND WANTS ELIQUIS HELD PER RADIOLOGY RECOMMENDATION. COMPLIED
--- NOTE | 2021-03-17 19:02 | NUR ---
RN NOTE- C/O DYSPEPSIA. MAALOX 30CC GIVEN
--- NOTE | 2021-03-17 19:05 | NUR ---
RN OPENING NOTES PT RESTING IN BED, WATCHING TV. A/O X4. HE DENIES ANY PAIN OR DISCOMFORT AT THIS TIME. RESPIRATIONS EVEN AND UNLABORED. ON ROOM AIR. IV SITE ON L-AC #20 INTACT, PATENT, AND FLUSHES WELL. PT AMBULATES TO BR WITH STEADY GAIT. SAFETY MEASURES IN PLACE, BED IN LOWEST LOCKED POSITION, S/R UP X2, CALL LIGHT WITHIN REACH. WILL CONTINUE TO MONITOR.
[2021-03-17 20:00] VITALS: BP 129/76
[2021-03-18] MEDS: HYDROMORPHONE 1 MG/1 ML DISP.SYRIN IV PRN ×3 (03:00→11:17)
[2021-03-18] MEDS ORDERED: ASPI-1420 PO (06:55)
--- NOTE | 2021-03-18 07:28 | NUR ---
RN CLOSING NOTES PT RESTING IN BED, EASILY AWAKENS TO STIMULI, DENIES ANY PAIN OR DISCOMFORT AT THIS TIME. BRP, AMBULATES WITH STEADY GAIT. ALL NEEDS ATTENDED TO. PT SLEPT WELL DURING THE NIGHT. NO ACUTE DISTRESS NOTED. ENDORSED TO NEXT SHIFT NURSE.
[2021-03-18] MEDS ORDERED: PANTOPRAZOLE 40 MG TABLET.DR PO SCH (07:30)
--- NOTE | 2021-03-18 07:30 | NUR ---
RN OPENING NOTES RECEIVED PT RESTING IN BED, AWAKE, A/O X4. NO COMPLAINTS OF PAIN OR DISCOMFORT AT THIS TIME. RESPIRATIONS EVEN AND UNLABORED. ON ROOM AIR. IV SITE ON L-AC #20 INTACT, PATENT AND FLUSHES WELL. PATIENT IS AMBULATORY IN STEADY GAIT. SAFETY MEASURES IN PLACE, BED IN LOWEST LOCKED POSITION, S/R UP X2, CALL LIGHT WITHIN REACH. WILL CONTINUE TO MONITOR ACCORDINGLY.
[2021-03-18 08:18] VITALS: BP 134/86
[2021-03-18] MEDS: ASPIRIN EC 81 MG TABLET.DR PO SCH (08:26)
--- NOTE | 2021-03-18 11:04 | NUR ---
CT Guideed Drainage of ABSCESS RN Notes AAOx4; consented to CT guided drainage of abscess; VSS; DRainage of Abscess done c/o Dr Hassan, no sedative required pt tolerated procedure; sent back to floor via wheelchair
--- NOTE | 2021-03-18 11:15 | NUR ---
RN NOTES SPECIMEN FROM DRAINING OF ABSCESS FORWARDED TO LAB FOR CULTURE AND SENSITIVITY.
--- NOTE | 2021-03-18 12:49 | NUR ---
MS ENGINEERING MGR NOTES DISCHARGED PATIENT IN STABLE CONDITION, VITAL SIGNS WITHIN NORMAL LIMITS. HOME MEDICATIONS AND HEALTH TEACHINGS PROVIDED TO PATIENT. INSTRUCTED ON FOLLOW UP WITH PCP AND IN CASE OF EMERGENCY TO GO TO THE NEAREST E.R OR CALL 911. PATIENT VERBALIZED UNDERSTANDING. ALL BELONGINGS SIGNED AND ACCOUNTED FOR. IV ACCESS REMOVED, COVERED WITH DRY DRESSING AND SECURED WITH TAPE. NO BLEEDING NOTED. ARMBAND REMOVED. PATIENT LEFT UNIT AT 1249 ACCOMPANIED BY JUDITH Orozco CNA AND WAS PICKED UP BY MANUEL NEGRETE MD AND CHARGE NURSE AWARE OF DISCHARGE.
== END 2021-03-18 12:50 | disposition home or self-care (01) | DRG 813 ==
LOC: ER 23:24 → MED 03-16 06:48
PROVIDERS: ADMIT Nurse Practitioner Acute Care; ATTEND Nurse Practitioner Acute Care
PROC: 0W9G3ZX Drainage of Peritoneal Cavity, Percutaneous Approach, Diagnostic (ICD-10-PCS; principal; 2021-03-18)
DX: K91.872 Postprocedural seroma of a digestive system organ or structure following a digestive system procedure (principal); I82.621 Acute embolism and thrombosis of deep veins of right upper extremity; G62.9 Polyneuropathy, unspecified; Y83.8 Other surgical procedures as the cause of abnormal reaction of the patient, or of later complication, without mention of misadventure at the time of the procedure; Y73.3 Surgical instruments, materials and gastroenterology and urology devices (including sutures) associated with adverse incidents; Y92.129 Unspecified place in nursing home as the place of occurrence of the external cause; I10 Essential (primary) hypertension; Z98.890 Other specified postprocedural states; Z79.899 Other long term (current) drug therapy; Z79.01 Long term (current) use of anticoagulants; G89.29 Other chronic pain; D47.3 Essential (hemorrhagic) thrombocythemia
CPT/HCPCS: 36415; 71045-TC; 75989-TC; 80048-TC; 80061-TC; 80076-TC; 83690-TC; 83735-TC; 84100-TC; 85025-TC; 85730-TC; 87070-TC; 87081-TC; A4215; C9113; C9803; G0378; J1170; J2270; J2543; J3490; J7050; J7060; Q9967

== ENCOUNTER 2023-01-07 16:09 | Emergency (ER) | payer OTHER ==
[~2023-01-07] VITALS: Ht 177.8 cm; Wt 106.6 kg
[~2023-01-07 16:09] MED LIST changes: +ACET325T53 PO; +APIX5TAB PO; +ASPI-1420 PO; -OXYC30TA2 PO; +SIME80TA15 PO; +ZOLP5TAB2 PO
[2023-01-07 16:50] LABS: BASOPHILS % (AUTO) 0.1 % (0.0-2.0); EOSINOPHILS % (AUTO) 0.7 % (0.0-6.0); HEMATOCRIT 44 % (39-51); HEMOGLOBIN 13.7 g/dL (13.5-17.5); LYMPHOCYTES % (AUTO) 7.7 % (20.0-44.0); MEAN CORPUSCULAR HGB CONC 31 g/dl (31.0-36.0); MEAN CORPUSCULAR VOLUME 87 fL (80-96); MONOCYTES # (AUTO) 0.9 K/uL (0.1-1.30); MONOCYTES % (AUTO) 6.6 % (2.0-12.0); NEUTROPHILS # (AUTO) 11.5 K/uL (1.8-8.9); NEUTROPHILS % (AUTO) 84.9 % (43.0-81.0); PLATELET COUNT (AUTO) 341 K/uL (150-450); RED BLOOD CELL COUNT(AUTO) 5.12 MIL/uL (4.5-6.0); WHITE BLOOD COUNT (AUTO) 13.5 K/uL (4.3-11.0)
[2023-01-07] MEDS ORDERED: ASPIRIN 325 MG TABLET PO ONE (17:00)
[2023-01-07 17:02] LABS: CALCIUM, SERUM 9.2 mg/dL (8.5-10.1); CARBON DIOXIDE 28 mmol/L (21-32); CHLORIDE 103 mmol/L (98-107); CREATININE 0.8 mg/dL (0.6-1.3); GLUCOSE 165 mg/dL (74-106); POTASSIUM 3.5 mmol/L (3.5-5.1); SODIUM SERUM 140 mmol/L (136-145); UREA NITROGEN, BLOOD 8 mg/dL (7-18)
[2023-01-07] MEDS ORDERED: MORPHINE SULFATE INJ 2 MG/ML DISP.SYRIN IV ONE (17:30)
[2023-01-07] MEDS ORDERED: POTASSIUM CHLORIDE 20 MEQ TAB.PRT.SR PO ONE (17:30)
[2023-01-07 17:38] LABS: LYMPHOCYTES % (MANUAL) 6 % (16-48); MONOCYTES % (MANUAL) 5 % (0-11.0); NEUTROPHILS % (MANUAL) 89 (42-76)
[2023-01-07] MEDS ORDERED: MORPHINE SULFATE INJ 4 MG/ML DISP.SYRIN ONE (17:38)
[2023-01-07] MEDS ORDERED: Magnesium 1GM/D5W 100ML PREMIX 100 ML IV ONE ×2 (17:38→18:49)
[2023-01-07] MEDS ORDERED: ASPIRIN 325 MG TABLET ONE (17:39)
[2023-01-07] MEDS: Magnesium 1GM/D5W 100ML PREMIX 100 ML IV SCH ×2 (17:50→18:55)
[2023-01-07] MEDS ORDERED: OXYC30TA2 PO (18:05)
[2023-01-07] MEDS ORDERED: NAPR-1164 PO (20:33)
--- NOTE | 2023-01-07 20:54 | NUR ---
SULEMAN (SON) PICKING UP PT FOR D/C
[2023-01-07 21:01] VITALS: BP 133/84; TEMP 98.4
== END 2023-01-07 21:01 | disposition home or self-care (01) ==
LOC: ER 16:17
DX: R07.9 Chest pain, unspecified (principal); F14.10 Cocaine abuse, uncomplicated; I10 Essential (primary) hypertension; Z79.899 Other long term (current) drug therapy
CPT/HCPCS: 99285; 96365; 71045; 96366; 96375; 93005 ×2; 85025; 80048; 83735; 85378; 36415; 84484 ×2; 87081; 83880; 85007; J2270; J3475 ×2

== ENCOUNTER 2023-08-26 19:08 | Emergency (ER) | payer OTHER ==
[~2023-08-26] VITALS: Ht 177.8 cm; Wt 102.1 kg
[~2023-08-26 19:08] MED LIST changes: -ACET325T53 PO; -APIX5TAB PO; -ASPI-1420 PO; -HYDR-3972 PO; +NAPR-1164 PO; +OXYC30TA2 PO; -SIME80TA15 PO; -ZOLP5TAB2 PO
[2023-08-26] MEDS ORDERED: ONDANSETRON HCL/PF 4 MG/2 ML VIAL ONE (19:55)
[2023-08-26] MEDS ORDERED: MORPHINE SULFATE INJ 4 MG/ML DISP.SYRIN ONE (19:55)
[2023-08-26] MEDS ORDERED: MORPHINE SULFATE INJ 2 MG/ML DISP.SYRIN IV ONE (20:00)
[2023-08-26] MEDS ORDERED: ONDANSETRON HCL/PF 4 MG/2 ML VIAL IVP ONE (20:00)
[2023-08-26] MEDS ORDERED: IV NS 0.9% 1,000 ML BAG IV ONE (20:00)
[2023-08-26 20:24] LABS: BASOPHILS # (AUTO) 0.1 K/uL (0.0-0.2); BASOPHILS % (AUTO) 1.5 % (0.0-2.0); EOSINOPHILS % (AUTO) 0.5 % (0.0-6.0); HEMATOCRIT 45 % (39-51); HEMOGLOBIN 14.9 g/dL (13.5-17.5); LYMPHOCYTES # (AUTO) 1.4 K/uL (0.8-4.8); LYMPHOCYTES % (AUTO) 15.3 % (20.0-44.0); MEAN CORPUSCULAR HEMOGLOBIN 28 PG (26.0-33.0); MEAN CORPUSCULAR HGB CONC 33 g/dl (31.0-36.0); MEAN CORPUSCULAR VOLUME 85 fL (80-96); MONOCYTES # (AUTO) 0.6 K/uL (0.1-1.30); MONOCYTES % (AUTO) 6.6 % (2.0-12.0); NEUTROPHILS # (AUTO) 6.9 K/uL (1.8-8.9); NEUTROPHILS % (AUTO) 76.1 % (43.0-81.0); PLATELET COUNT (AUTO) 440 K/uL (150-450); RED BLOOD CELL COUNT(AUTO) 5.31 MIL/uL (4.5-6.0); RED CELL DISTRIBUTION WIDTH 14.5 % (11.5-15.0); WHITE BLOOD COUNT (AUTO) 9.1 K/uL (4.3-11.0)
[2023-08-26 20:37] LABS: ALANINE AMINOTRANSFERASE 16 U/L (12-78); ALBUMIN 3.8 g/dL (3.4-5.0); ALKALINE PHOSPHATASE 109 U/L (46-116); ASPARTATE AMINOTRANSFERASE 10 U/L (15-37); BILIRUBIN,DIRECT 0.1 mg/dL (0.0-0.2); BILIRUBIN,TOTAL 0.4 mg/dL (0.2-1.0); CALCIUM, SERUM 9.1 mg/dL (8.5-10.1); CARBON DIOXIDE 29 mmol/L (21-32); CHLORIDE 97 mmol/L (98-107); CREATININE 0.7 mg/dL (0.6-1.3); GLUCOSE 103 mg/dL (74-106); LIPASE 30 U/L (16-77); POTASSIUM 3.6 mmol/L (3.5-5.1); SODIUM SERUM 135 mmol/L (136-145); UREA NITROGEN, BLOOD 9 mg/dL (7-18)
[2023-08-26 20:44] LABS: APPEARANCE,URINE SLIGHTLY CLOUDY (CLEAR); BILIRUBIN,URINE NEGATIVE (NEGATIVE); BLOOD, URINE NEGATIVE Ery/uL (NEGATIVE); COLOR,URINE YELLOW (YELLOW); KETONES,URINE NEGATIVE (NEGATIVE); LEUKOCYTE ESTERASE ,URINE NEGATIVE (NEGATIVE); NITRITE, URINE NEGATIVE (NEGATIVE); PROTEIN,URINE NEGATIVE (NEGATIVE); UGLUCOSE NEGATIVE (NEGATIVE)
[2023-08-26 20:57] LABS: ADD URINE CULTURE NO; BACTERIA,URINE Rare /HPF (None Seen); RBC,URINE NONE SEEN /HPF (0-2); SQUAMOUS EPITHELIAL CELL,UR None Seen /HPF (None Seen); WBC,URINE NONE SEEN /HPF (0-3)
[2023-08-26 20:58] LABS: URINE AMORPHOUS URATE Few /HPF (None Seen)
[2023-08-26] MEDS ORDERED: MAG HYDROX/AL HYDROX/SIMETH 30 ML UDC ONE (21:36)
[2023-08-26] MEDS ORDERED: FAMOTIDINE/PF INJ 20 MG/2 ML VIAL IV ONE ×2 (21:37→22:00)
[2023-08-26] MEDS ORDERED: LIDOCAINE VISCOUS 2% UD 15 ML UDC ONE (21:37)
[2023-08-26] MEDS ORDERED: OMEP40CA21 PO (21:51)
[2023-08-26] MEDS ORDERED: LIDOCAINE VISCOUS 2% UD 15 ML UDC MM ONE (22:00)
[2023-08-26] MEDS ORDERED: MAG HYDROX/AL HYDROX/SIMETH 30 ML UDC PO ONE (22:00)
[2023-08-26 22:37] VITALS: BP 124/76; TEMP 98.2; O2SAT 99
== END 2023-08-26 22:37 | disposition home or self-care (01) ==
LOC: ER 19:15
DX: R10.13 Epigastric pain (principal); I10 Essential (primary) hypertension
CPT/HCPCS: 99285; 74176; 96374; 96375; 96361; 93005; 85025; 80048; 83690; 80076; 81001; 36415; 84484; J2270; J3490; J2405; J7030